=== PATIENT | female | born 1975 | race Caucasian/White ===

== ENCOUNTER 2018-03-22 20:51 | Emergency (ER) | END 2018-03-23 03:31 | disposition home or self-care (01) ==

== ENCOUNTER 2018-08-28 13:13 | Inpatient (IN) | payer OTHER ==
[~2018-08-28] VITALS: Ht 154.9 cm; Wt 68.2 kg
[2018-08-28 11:45] VITALS: Ht 154.9 cm; Wt 68.2 kg
[~2018-08-28 13:13] MED LIST: NITR-58 PO; ONDA4TAB14 PO
[2018-08-28 14:40] VITALS: BP 113/59; PULSE 59; RESP 16
--- NOTE | 2018-08-28 14:40 | NUR ---
Patient admitted from [facility], direct admit, alert and oriented. Vital signs stable. Denies pain. Patient NPO. Patient ambulatory, family at bedside. Will continue with care plan.
--- NOTE | 2018-08-28 15:51 | HP ---
Date/Time of Note Date/Time of Note DATE: 08/28/18 TIME: 15:51 Assessment/Plan VTE Prophylaxis SCD applied (from Nsg): No SCD contraindicated: other Pharmacological prophylaxis: heparin Assessment/Plan Hospital Course Assessment and plan: 43-year-old female with abdominal pain nausea vomiting with signs of cholelithiasis #Abdominal pain: Likely secondary to gallstones, specifically gallstone in the cystic duct. White blood cell count normal, LFTs normal -Admit patient, keep n.p.o. for now, give IV fluids. -Check TSH, A1c, lipid panel -We will also consult GI team and surgery team, patient may benefit from ERCP, will discuss with them. -Consider MRCP. # GI ppx-PPI HPI/ROS Admit Date/Time Admit Date/Time Aug 28, 2018 at 14:33 Hx of Present Illness 43-year-old female with no significant past medical history who was transferred from outside hospital due to insurance purposes after complaining of epigastric pain. Symptoms have been going on for the last 24 hours. She had some nausea symptoms as well as vomiting, nonbilious or nonbloody. Denied any upper or lower GI bleeding, no diarrhea constipation, no chest pain or shortness of breath, no fevers or chills. When she presented to the outside hospital imaging studies were performed and it showed an apparent cystic duct calculus. PMH/Family/Social Past Medical History Coded Allergies: Penicillins (Verified Allergy, Unknown, 03/22/18) Social History Smoking Status: Never smoker Drug Use: none Exam/Review of Systems Exam Exam General:lying in bed in no acute distress presently HEENT: pupils are equal, round and reactive. Extraocular motor are intact Neck: Supple with full range of motion. Chest: Nontender Lungs: Coarse breath sounds bilaterally, no wheezing noted no rales noted Heart: Normal S1-S2, Regular rhythm and rate. Abdomen: Soft , mild tenderness to palpation epigastric area, nondistended , bowel sounds are present. No guarding no rebound Extremities: Normal to inspection, no edema no cyanosis Neurologic: No signs of overt focal deficits KACI JAY Aug 28, 2018 15:51
[2018-08-28] MEDS ORDERED: NITROGLYCERIN (SL) 0.4 MG TAB SL PRN (16:30)
[2018-08-28] MEDS ORDERED: morphine 4 MG/ML VIAL IV PRN (16:30)
[2018-08-28] MEDS ORDERED: hydrALAzine 20 MG INJ IV PRN (16:30)
[2018-08-28] MEDS ORDERED: ALBUTEROL/IPRATROPIUM (NEB) 3 ML AMP HHN PRN (16:30)
[2018-08-28] MEDS ORDERED: ONDANSETRON 4 MG INJ IV PRN (16:30)
[2018-08-28] MEDS ORDERED: HYDROCODONE/APAP (5/325) TAB PO PRN (16:30)
[2018-08-28] MEDS ORDERED: ACETAMINOPHEN 325 MG TAB PO PRN (16:30)
[2018-08-28] MEDS ORDERED: MAGNESIUM HYDROXIDE 30ML CUP PO PRN (16:30)
[2018-08-28] MEDS ORDERED: LORAZEPAM 2 MG INJ IV PRN (16:30)
[2018-08-28] MEDS ORDERED: NACL 0.9% 3 ML SYG IV SCH (16:30)
[2018-08-28] MEDS ORDERED: DOCUSATE SODIUM 100 MG CAP PO PRN (16:30)
[2018-08-28] MEDS: SOD CHLORIDE 0.9% 1,000 ML IV SCH (17:17)
--- NOTE | 2018-08-28 19:00 | NUR ---
Patient sitting up at the edge of the bed. Patient had clear liquid diet for dinner, well tolerated. Denies pain at this time. Seen by Dr. Segovia, patient is aware that plan for tomorrow is Laparoscopic Cholecystectomy, possible open around 11 AM. Stable condition.
[2018-08-28 19:32] VITALS: BP 108/52; PULSE 61; RESP 18
[2018-08-28] MEDS: HEPARIN 5,000 UNIT/1 ML VIAL SC SCH (21:16)
[2018-08-29] VITALS (19 sets, daily range): BP systolic 98–128; BP diastolic 48–72; PULSE 56–75; RESP 12–27
[2018-08-29] MEDS: SOD CHLORIDE 0.9% 1,000 ML IV SCH ×3 (02:03→13:51)
--- NOTE | 2018-08-29 05:24 | NUR ---
Patient is alert and oriented x4, denies any pain. Able to ambulate to restroom without difficulty. at bedside. Patient is NPO except medications for procedure today. Hourly rounding provided, call light within reach. Will continue to monitor for the remaining of the shift.
[2018-08-29] MEDS: PANTOPRAZOLE (EC) 40 MG TAB PO SCH (05:44)
[2018-08-29] MEDS ORDERED: EPHEDrine SULFATE 50 MG/5 ML SYG ONE (07:00)
[2018-08-29] MEDS ORDERED: DESFLURANE 15 MIN ONE (07:00)
[2018-08-29] MEDS ORDERED: CLINDAMYCIN 900 MG/50 ML D5W IVPB IVPB ONE (07:00)
[2018-08-29] MEDS ORDERED: PHENYLephrine (100 MCG/ML) 5ML SYG ONE (07:00)
[2018-08-29] MEDS: HEPARIN 5,000 UNIT/1 ML VIAL SC SCH ×2 (08:16→21:35)
[2018-08-29] MEDS ORDERED: ONDANSETRON 4 MG INJ IV PRN (10:30)
[2018-08-29] MEDS ORDERED: morphine (1 MG/ML) 10ML SYRINGE IV PRN ×2 (10:30)
[2018-08-29] MEDS ORDERED: OXYCODONE/ACETAMINOPHEN (5/325) TAB PO PRN ×2 (10:30)
[2018-08-29] MEDS ORDERED: DIPHENHYDRAMINE 50 MG INJ IV PRN (10:30)
[2018-08-29] MEDS ORDERED: MEPERIDINE 25 MG INJ IV PRN (10:30)
[2018-08-29] MEDS ORDERED: LABETALOL HCL 20MG INJ IV PRN (10:30)
[2018-08-29] MEDS ORDERED: FENTAnyl 50 MCG/ML VIAL IV PRN ×2 (10:30)
[2018-08-29] MEDS ORDERED: HYDROmorphONE 1 MG/5 ML IV SYRINGE IV PRN ×2 (10:30)
[2018-08-29] MEDS ORDERED: ALBUTEROL 0.083% (NEB) 2.5 MG/3 ML AMP HHN PRN (10:30)
--- NOTE | 2018-08-29 10:35 | NUR ---
PATIENT WAS PICKED UP BY TRANSPORT GOING TO OR ORDERED. IV PATENT AND INTACT. REPORT GIVEN TO MADISON MIGUEL (HOLDING AREA). PER MAC, SEND THE IV HYDRATION VIA GRAVITY. PATIENT LEFT THE UNIT NO SOB OR DISTRESS, DAUGHTER ARMANDO ACCOMPANIED THE PATIENT
[2018-08-29] MEDS ORDERED: MIDAZOLAM 1 MG/ML 2 ML INJ ONE (10:52)
[2018-08-29] MEDS ORDERED: LIDOCAINE 2% (SDV) 5 ML INJ ONE (10:52)
[2018-08-29] MEDS ORDERED: ROCURONIUM 50 MG INJ ONE (10:52)
[2018-08-29] MEDS ORDERED: PROPOFOL 40 ML ONE (10:52)
[2018-08-29] MEDS ORDERED: FAMOTIDINE 20 MG INJ ONE (10:53)
[2018-08-29] MEDS ORDERED: FENTAnyl 50 MCG/ML VIAL ONE (10:53)
[2018-08-29] MEDS ORDERED: ONDANSETRON 4 MG INJ ONE (10:53)
[2018-08-29] MEDS ORDERED: DEXAMETHASONE 4 MG/ML 5 ML INJ ONE (10:53)
--- NOTE | 2018-08-29 11:09 | PREAC ---
Date/Time of Note Date/Time of Note DATE: 08/29/18 TIME: 11:08 Anesthesia Eval and Record Evaluation Time Pre-Procedure Interview DATE: 08/29/18 TIME: 11:08 Age 43 Sex female NPO: 8 hrs Preoperative diagnosis cholelithiasis Planned procedure Laparoscopic cholecystectomy Past Medical History Past Medical History: Includes GI: Obesity Surgery & Anesthesia Issues No known issue Meds Anticoagulation: No Beta Shaheen within 24 hr: No Reason Beta Shaheen not given: Pt. not on B-Shaheen Active Scripts Ondansetron (Ondansetron Odt) 4 Mg Tab.rapdis, 4 MG PO Q6H PRN for NAUSEA AND/OR VOMITING, #10 TAB Prov:EDGAR,BRIDGETT 03/23/18 Nitrofurantoin Monohyd Macrocr* (Macrobid*) 100 Mg Capsr, 100 MG PO BID for 7 Days, #14 CAP Prov:EDGAR,BRIDGETT 03/23/18 Current Medications IV Flush (NS 3 ml) 3 ml PER PROTOCOL IV ; Start 08/28/18 at 16:30 Ondansetron HCl (Zofran Inj) 4 mg Q6H PRN IV NAUSEA AND/OR VOMITING; Start 08/28/18 at 16:30 Acetaminophen (Tylenol Tab) 650 mg Q6H PRN PO PAIN LEVEL 1-3 OR FEVER; Start 08/28/18 at 16:30 Acetaminophen/ Hydrocodone Bitart ([place] (5/325)) 1 tab Q6H PRN PO MODERATE PAIN LEVEL 4-6; Start 08/28/18 at 16:30 Morphine Sulfate (morphine) 2 mg Q4H PRN IV SEVERE PAIN LEVEL 7-10; Start 08/28/18 at 16:30 Docusate Sodium (Colace) 100 mg Q12H PRN PO CONSTIPATION; Start 08/28/18 at 16:30 Magnesium Hydroxide (Milk Of Mag) 30 ml DAILY PRN PO CONSTIPATION; Start at 16:30 Pantoprazole (Protonix Tab) 40 mg DAILY@06 PO Last administered on 08/29/18at 05:44; Admin Dose 40 MG; Start 08/29/18 at 06:00 Heparin Sodium (Porcine) (Heparin (5000 Units/1ml)) 5,000 unit Q12 SC Last administered on 08/28/18at 21:16; Admin Dose 5,000 UNIT; Start 08/28/18 at 21:00 Lorazepam (Ativan) 0.5 mg Q6H PRN IV ANXIETY; Start 08/28/18 at 16:30 Sodium Chloride 1,000 ml @ 100 mls/hr Q10H IV Last administered on 08/29/18at 02:03; Admin Dose 100 MLS/HR; Start 08/28/18 at 16:05 Albuterol/ Ipratropium (Duoneb) 3 ml Q4H RESP THERAPY PRN HHN SHORTNESS OF BREATH; Start 08/28/18 at 16:30 Hydralazine HCl (Apresoline) 10 mg Q6H PRN IV ELEVATED BLOOD PRESSURE; Start 08/28/18 at 16:30 Nitroglycerin (Nitroglycerin (Sl Tab) 0.4 Mg) 1 tab Q5M PRN SL ANGINA; Start 08/28/18 at 16:30 Morphine Sulfate (morphine (REC)) 2 mg PACU ORDER PRN IV MILD PAIN LEVEL 1-3; Start 08/29/18 at 10:30; Stop 08/29/18 at 18:00 Morphine Sulfate (morphine (REC)) 4 mg PACU ORDER PRN IV MODERATE PAIN LEVEL 4- 6; Start 08/29/18 at 10:30; Stop 08/29/18 at 18:00 Hydromorphone HCl (Dilaudid) 0.2 mg PACU PRN IV MILD PAIN LEVEL 1-3; Start 08/29/18 at 10:30; Stop 08/29/18 at 18:00 Hydromorphone HCl (Dilaudid) 0.4 mg PACU PRN IV MODERATE PAIN LEVEL 4-6; Start 08/29/18 at 10:30; Stop 08/29/18 at 18:00 Fentanyl (Sublimaze) 25 mcg PACU ORDER PRN IV MILD PAIN LEVEL 1-3; Start 08/29/18 at 10:30; Stop 08/29/18 at 18:00 Fentanyl (Sublimaze) 50 mcg PACU ORDER PRN IV MODERATE PAIN LEVEL 4-6; Start 08/29/18 at 10:30; Stop 08/29/18 at 18:00 Oxycodone/ Acetaminophen (Percocet (5/ 325)) 1 tab PACU ORDER PRN PO PAIN LEVEL 1-5; Start 08/29/18 at 10:30; Stop 08/29/18 at 18:00 Oxycodone/ Acetaminophen (Percocet (5/ 325)) 2 tab PACU ORDER PRN PO PAIN LEVEL 6-10; Start 08/29/18 at 10:30; Stop 08/29/18 at 18:00 Ondansetron HCl (Zofran Inj) 4 mg PACU ORDER PRN IV NAUSEA AND/OR VOMITING; Start 08/29/18 at 10:30; Stop 08/29/18 at 18:00 Labetalol HCl (Labetalol) 5 mg PACU ORDER PRN IV ELEVATED BLOOD PRESSURE; Start 08/29/18 at 10:30; Stop 08/29/18 at 18:00 Albuterol (Proventil 0.083% (Neb)) 2.5 mg PACU ORDER PRN HHN WHEEZING; Start 08/29/18 at 10:30; Stop 08/29/18 at 18:00 Meperidine HCl (Demerol) 25 mg PACU ORDER PRN IV POST OPERATIVE SHIVERING; Start 08/29/18 at 10:30; Stop 08/29/18 at 18:00 Diphenhydramine HCl (Benadryl) 25 mg PACU ORDER PRN IV PRURITUS; Start 08/29/18 at 10:30; Stop 08/29/18 at 18:00 Meds reviewed: Yes Allergies Coded Allergies: Penicillins (Verified Allergy, Unknown, 08/28/18) Allergies Reviewed: Yes Labs/Studies Labs Reviewed: Reviewed by anesthesiologist Result Diagram: 08/29/18 0526 08/29/18 0526 Laboratory Tests 08/29/18 05:26 test: Negative Pre-procedure Exam Last vitals Vital Signs Date Temp Pulse Resp B/P (MAP) Pulse Ox O2 O2 Flow FiO2 Time Delivery Rate 08/29/18 98.1 56 18 100/48 100 08:11 (65) 08/28/18 Room Air 14:40 Airway: Adequate mouth opening, Adequate thyromental dist Mallampati: Mallampati II Teeth: Normal Lung: Normal Heart: Normal ASA Physical Status ASA physical status: 2 Emergency: E Planned Anesthetic General/MAC: ETT Pre-operative Attestations Prior to commencing anesthesia and surgery, the patient was re-evaluated, there was verification of: *The patient's identity *The results of appropriate recent lab work and preoperative vital signs *The above evaluation not changing prior to induction *Anesthetic plan, risk benefits, alternative and complications discussed with patient/family; questions answered; patient/family understands, accepts and wishes to proceed. Heating Plant Superintendent used LUIS FERNANDO DASILVA Aug 29, 2018 11:09
--- NOTE | 2018-08-29 11:10 | QN ---
Documentation Comment Pt currently in OR- will consult later today or in [facility] Aug 29, 2018 11:10
[2018-08-29] MEDS ORDERED: BUPIVACAINE 0.5%/EPI (SDV) 30 ML INJ ONE (11:25)
[2018-08-29] MEDS ORDERED: CLINDAMYCIN 600 MG/D5W (PMX) 50 ML IVPB ONE (11:27)
[2018-08-29] MEDS ORDERED: SUGAMMADEX SODIUM 200 MG/2 ML VIAL IV ONE (11:31)
--- NOTE | 2018-08-29 12:04 | NUR ---
RECEIVED ASLEEP WITH ORAL AIRWAY IN PLACE AND OXYGEN MASK ON, BREATHING WITH EASE. ABDOMINAL INCISIONS CLEAR WITH JUANA INTACT AND BAND AIDS IN PLACE.
--- NOTE | 2018-08-29 12:05 | CONS ---
Date/Time of Note Date/Time of Note DATE: 08/29/18 TIME: 12:01 Assessment/Plan Assessment/Plan Assessment/Plan Acute cholecystitis. Laparoscopic cholecystectomy is recommended. I have discussed the procedure, outcomes, alternatives and risks in detail with the patient who has an excellent understanding of the nature of her situation and agrees to the proposed plan of therapy as outlined. Result Diagram: 08/29/18 0526 08/29/18 0526 Results 24hrs Laboratory Tests Test 08/28/18 16:29 08/29/18 05:26 Prothrombin Time 12.4 Prothrombin Time Ratio 1.0 INR International Normalized Ratio 0.91 Activated Partial Thromboplast Time 28.0 Free Thyroxine 1.13 White Blood Count 4.9 Red Blood Count 3.76 L Hemoglobin 11.3 L Hematocrit 34.5 L Mean Corpuscular Volume 91.8 Mean Corpuscular Hemoglobin 30.1 Mean Corpuscular Hemoglobin Concent 32.8 Red Cell Distribution Width 13.8 Platelet Count 235 Mean Platelet Volume 10.6 H Immature Granulocytes % 0.200 Neutrophils % 40.3 Lymphocytes % 36.0 Monocytes % 6.9 Eosinophils % 16.0 H Basophils % 0.6 Nucleated Red Blood Cells % 0.0 Immature Granulocytes # 0.010 Neutrophils # 2.0 Lymphocytes # 1.8 Monocytes # 0.3 Eosinophils # 0.8 H Basophils # 0.0 Nucleated Red Blood Cells # 0.0 Sodium Level 141 Potassium Level 3.9 Chloride Level 108 Carbon Dioxide Level 27 Anion Gap 6 Blood Urea Nitrogen 14 Creatinine 0.56 Est Glomerular Filtrat Rate mL/min > 60 Glucose Level 107 Hemoglobin A1c 5.5 Calcium Level 8.2 L Phosphorus Level 3.4 Magnesium Level 2.3 Triglycerides Level 188 H Cholesterol Level 152 LDL Cholesterol, Calculated 78 HDL Cholesterol 36 Cholesterol/HDL Ratio 4.2 Thyroid Stimulating Hormone (TSH) 1.720 Consultation Date/Type/Reason Admit Date/Time Aug 28, 2018 at 14:33 Date of Consultation: Aug 28, 2018 Type of Consult General surgery Reason for Consultation Acute cholecystitis Hx of Present Illness The patient is an otherwise healthy 43-year-old female who was diagnosed with gallstones and cholecystitis at another facility. She is transferred here for insurance reasons and for continuance of care. She has had no fevers, chills or jaundice. She does have multiple gallstones. Constitutional: no complaints Eyes: no complaints ENT: no complaints Respiratory: no complaints Gastrointestinal: pain (Right upper quadrant), nausea Genitourinary: no complaints Musculoskeletal: no complaints Skin: no complaints Neurologic: no complaints Endocrine: no complaints Lymphatic: no complaints Psychological: no complaints Past Medical History Medical History: gallstones Medications Current Medications IV Flush (NS 3 ml) 3 ml PER PROTOCOL IV ; Start 08/28/18 at 16:30 Ondansetron HCl (Zofran Inj) 4 mg Q6H PRN IV NAUSEA AND/OR VOMITING; Start 08/28/18 at 16:30 Acetaminophen (Tylenol Tab) 650 mg Q6H PRN PO PAIN LEVEL 1-3 OR FEVER; Start 08/28/18 at 16:30 Acetaminophen/ Hydrocodone Bitart ([place] (5/325)) 1 tab Q6H PRN PO MODERATE PAIN LEVEL 4-6; Start 08/28/18 at 16:30 Morphine Sulfate (morphine) 2 mg Q4H PRN IV SEVERE PAIN LEVEL 7-10; Start 08/28/18 at 16:30 Docusate Sodium (Colace) 100 mg Q12H PRN PO CONSTIPATION; Start 08/28/18 at 16:30 Magnesium Hydroxide (Milk Of Mag) 30 ml DAILY PRN PO CONSTIPATION; Start 08/28/18 at 16:30 Pantoprazole (Protonix Tab) 40 mg DAILY@06 PO Last administered on 08/29/18at 05:44; Admin Dose 40 MG; Start 08/29/18 at 06:00 Heparin Sodium (Porcine) (Heparin (5000 Units/1ml)) 5,000 unit Q12 SC Last administered on 08/28/18at 21:16; Admin Dose 5,000 UNIT; Start 08/28/18 at 21:00 Lorazepam (Ativan) 0.5 mg Q6H PRN IV ANXIETY; Start 08/28/18 at 16:30 Sodium Chloride 1,000 ml @ 100 mls/hr Q10H IV Last administered on 08/29/18at 02:03; Admin Dose 100 MLS/HR; Start 08/28/18 at 16:05 Albuterol/ Ipratropium (Duoneb) 3 ml Q4H RESP THERAPY PRN HHN SHORTNESS OF BREATH; Start 08/28/18 at 16:30 Hydralazine HCl (Apresoline) 10 mg Q6H PRN IV ELEVATED BLOOD PRESSURE; Start 08/28/18 at 16:30 Nitroglycerin (Nitroglycerin (Sl Tab) 0.4 Mg) 1 tab Q5M PRN SL ANGINA; Start 08/28/18 at 16:30 Morphine Sulfate (morphine (REC)) 2 mg PACU ORDER PRN IV MILD PAIN LEVEL 1-3; Start 08/29/18 at 10:30; Stop 08/29/18 at 18:00 Morphine Sulfate (morphine (REC)) 4 mg PACU ORDER PRN IV MODERATE PAIN LEVEL 4- 6; Start 08/29/18 at 10:30; Stop 08/29/18 at 18:00 Hydromorphone HCl (Dilaudid) 0.2 mg PACU PRN IV MILD PAIN LEVEL 1-3; Start 08/29/18 at 10:30; Stop 08/29/18 at 18:00 Hydromorphone HCl (Dilaudid) 0.4 mg PACU PRN IV MODERATE PAIN LEVEL 4-6; Start 08/29/18 at 10:30; Stop 08/29/18 at 18:00 Fentanyl (Sublimaze) 25 mcg PACU ORDER PRN IV MILD PAIN LEVEL 1-3; Start 08/29/18 at 10:30; Stop 08/29/18 at 18:00 Fentanyl (Sublimaze) 50 mcg PACU ORDER PRN IV MODERATE PAIN LEVEL 4-6; Start 08/29/18 at 10:30; Stop 08/29/18 at 18:00 Oxycodone/ Acetaminophen (Percocet (5/ 325)) 1 tab PACU ORDER PRN PO PAIN LEVEL 1-5; Start 08/29/18 at 10:30; Stop 08/29/18 at 18:00 Oxycodone/ Acetaminophen (Percocet (5/ 325)) 2 tab PACU ORDER PRN PO PAIN LEVEL 6-10; Start 08/29/18 at 10:30; Stop 08/29/18 at 18:00 Ondansetron HCl (Zofran Inj) 4 mg PACU ORDER PRN IV NAUSEA AND/OR VOMITING; Start 08/29/18 at 10:30; Stop 08/29/18 at 18:00 Labetalol HCl (Labetalol) 5 mg PACU ORDER PRN IV ELEVATED BLOOD PRESSURE; Start 08/29/18 at 10:30; Stop 08/29/18 at 18:00 Albuterol (Proventil 0.083% (Neb)) 2.5 mg PACU ORDER PRN HHN WHEEZING; Start 08/29/18 at 10:30; Stop 08/29/18 at 18:00 Meperidine HCl (Demerol) 25 mg PACU ORDER PRN IV POST OPERATIVE SHIVERING; Start 08/29/18 at 10:30; Stop 08/29/18 at 18:00 Diphenhydramine HCl (Benadryl) 25 mg PACU ORDER PRN IV PRURITUS; Start 08/29/18 at 10:30; Stop 08/29/18 at 18:00 Allergies: Coded Allergies: Penicillins (Verified Allergy, Unknown, 08/28/18) Past Surgical History Past Surgical Hx: no surgical history Family History Significant Family History: no pertinent family hx Social History Alcohol Use: none (There is 2 4:39 PM in the did not consultations I did 2 consultations one was supposed to be on more see that the proper consultation 1 ended in the morning the windowsill of Demerol is the gallbladder) Smoking Status: Never smoker Drug Use: none Exam/Review of Systems Vital Signs Vitals Vital Signs Date Temp Pulse Resp B/P (MAP) Pulse Ox O2 O2 Flow FiO2 Time Delivery Rate 08/29/18 98.1 56 18 100/48 100 08:11 (65) 08/28/18 Room Air 14:40 Intake and Output 08/28/18 08/28/18 08/29/18 1515:00 23:00 07:00 IntakeIntake Total 700 ml 1300 ml BalanceBalance 700 ml 1300 ml Exam Constitutional: alert, oriented Psych: no complaints Head: normocephalic Eyes: nl conjunctiva ENMT: nl external ears & nose Neck: supple Cardiovascular: regular rate and rhythm Gastrointestinal: tender (Right upper quadrant) Musculoskeletal: nl extremities to inspection Extremities: normal pulses Neurological: OFFSET PRINTING PRESSMEN II-XII intact Skin: nl turgor Medications Medications Current Medications IV Flush (NS 3 ml) 3 ml PER PROTOCOL IV ; Start 08/28/18 at 16:30 Ondansetron HCl (Zofran Inj) 4 mg Q6H PRN IV NAUSEA AND/OR VOMITING; Start 08/28/18 at 16:30 Acetaminophen (Tylenol Tab) 650 mg Q6H PRN PO PAIN LEVEL 1-3 OR FEVER; Start 08/28/18 at 16:30 Acetaminophen/ Hydrocodone Bitart ([place] (5/325)) 1 tab Q6H PRN PO MODERATE PAIN LEVEL 4-6; Start 08/28/18 at 16:30 Morphine Sulfate (morphine) 2 mg Q4H PRN IV SEVERE PAIN LEVEL 7-10; Start 08/28/18 at 16:30 Docusate Sodium (Colace) 100 mg Q12H PRN PO CONSTIPATION; Start 08/28/18 at 16:30 Magnesium Hydroxide (Milk Of Mag) 30 ml DAILY PRN PO CONSTIPATION; Start at 16:30 Pantoprazole (Protonix Tab) 40 mg DAILY@06 PO Last administered on 08/29/18at 05:44; Admin Dose 40 MG; Start 08/29/18 at 06:00 Heparin Sodium (Porcine) (Heparin (5000 Units/1ml)) 5,000 unit Q12 SC Last administered on 08/28/18at 21:16; Admin Dose 5,000 UNIT; Start 08/28/18 at 21:00 Lorazepam (Ativan) 0.5 mg Q6H PRN IV ANXIETY; Start 08/28/18 at 16:30 Sodium Chloride 1,000 ml @ 100 mls/hr Q10H IV Last administered on 08/29/18at 02:03; Admin Dose 100 MLS/HR; Start 08/28/18 at 16:05 Albuterol/ Ipratropium (Duoneb) 3 ml Q4H RESP THERAPY PRN HHN SHORTNESS OF BREATH; Start 08/28/18 at 16:30 Hydralazine HCl (Apresoline) 10 mg Q6H PRN IV ELEVATED BLOOD PRESSURE; Start 08/28/18 at 16:30 Nitroglycerin (Nitroglycerin (Sl Tab) 0.4 Mg) 1 tab Q5M PRN SL ANGINA; Start 08/28/18 at 16:30 Morphine Sulfate (morphine (REC)) 2 mg PACU ORDER PRN IV MILD PAIN LEVEL 1-3; Start 08/29/18 at 10:30; Stop 08/29/18 at 18:00 Morphine Sulfate (morphine (REC)) 4 mg PACU ORDER PRN IV MODERATE PAIN LEVEL 4- 6; Start 08/29/18 at 10:30; Stop 08/29/18 at 18:00 Hydromorphone HCl (Dilaudid) 0.2 mg PACU PRN IV MILD PAIN LEVEL 1-3; Start 08/29/18 at 10:30; Stop 08/29/18 at 18:00 Hydromorphone HCl (Dilaudid) 0.4 mg PACU PRN IV MODERATE PAIN LEVEL 4-6; Start 08/29/18 at 10:30; Stop 08/29/18 at 18:00 Fentanyl (Sublimaze) 25 mcg PACU ORDER PRN IV MILD PAIN LEVEL 1-3; Start 08/29/18 at 10:30; Stop 08/29/18 at 18:00 Fentanyl (Sublimaze) 50 mcg PACU ORDER PRN IV MODERATE PAIN LEVEL 4-6; Start 08/29/18 at 10:30; Stop 08/29/18 at 18:00 Oxycodone/ Acetaminophen (Percocet (5/ 325)) 1 tab PACU ORDER PRN PO PAIN LEVEL 1-5; Start 08/29/18 at 10:30; Stop 08/29/18 at 18:00 Oxycodone/ Acetaminophen (Percocet (5/ 325)) 2 tab PACU ORDER PRN PO PAIN LEVEL 6-10; Start 08/29/18 at 10:30; Stop 08/29/18 at 18:00 Ondansetron HCl (Zofran Inj) 4 mg PACU ORDER PRN IV NAUSEA AND/OR VOMITING; Start 08/29/18 at 10:30; Stop 08/29/18 at 18:00 Labetalol HCl (Labetalol) 5 mg PACU ORDER PRN IV ELEVATED BLOOD PRESSURE; Start 08/29/18 at 10:30; Stop 08/29/18 at 18:00 Albuterol (Proventil 0.083% (Neb)) 2.5 mg PACU ORDER PRN HHN WHEEZING; Start 08/29/18 at 10:30; Stop 08/29/18 at 18:00 Meperidine HCl (Demerol) 25 mg PACU ORDER PRN IV POST OPERATIVE SHIVERING; Start 08/29/18 at 10:30; Stop 08/29/18 at 18:00 Diphenhydramine HCl (Benadryl) 25 mg PACU ORDER PRN IV PRURITUS; Start 08/29/18 at 10:30; Stop 08/29/18 at 18:00 FLORENTINO DENNISON MD Aug 29, 2018 12:05
--- NOTE | 2018-08-29 12:08 | OPR ---
Date/Time of Note Date/Time of Note DATE: 08/29/18 TIME: 12:05 Operative Report Procedure Date: Aug 29, 2018 Preoperative Diagnosis Acute cholecystitis Postoperative Diagnosis Acute cholecystitis Operation/Procedure Performed Laparoscopic cholecystectomy Surgeon Florentino Segovia MD Residence Counselor None Anesthesia Type: general Anesthesiologist: LUIS FERNANDO DASILVA Estimated Blood Loss: minimal Transfusion none Specimen Gallbladder Grafts/Implants none Tubes/Drains None Complications none Pt Condition Post Procedure: stable Disposition: PACU Indications Acute cholecystitis Procedure Description After satisfactory general endotracheal anesthesia was achieved, the abdomen was prepped and draped in the usual fashion. The abdomen was insufflated with carbon dioxide through an umbilical Veress needle to 15 mmHg pressure. The Veress needle was removed and the umbilical incision extended to 5 mm which a 5 mm trocar was placed. A 5 mm 0 degree lens was placed. Laparoscopy showed an inflamed edematous gallbladder. Under direct visualization an 11 mm epigastric trocar was placed as well as 2 more 5 mm right lateral abdominal trochars. The dome of the gallbladder was grasped and retracted superiorly. The distal gallbladder was grasped and retracted inferolaterally. The hepatoduodenal ligament was dissected carefully between the gallbladder and the well-visualized peace hepatis. The cystic duct was dissected circumferentially then triply hemoclipped and divided high at the junction of the gallbladder and the cystic duct. The cystic artery was identified immediately posteriorly. This was triply hemoclipped and divided between clips. The gallbladder was then dissected from below using electrocautery dissection and placed fully intact into an Endo Catch removed via the epigastric route. Hemostasis of the liver bed was total and irrigant returned clear. The abdomen was then desufflated and the trochars were removed. The fascia of the epigastrium was closed with a single suture of 0 Vicryl. The skin punctures were then infiltrated with 30 cc of 0.5% Marcaine with epinephrine and closed with kumar. Sponge and needle counts were reported as correct x2. FLORENTINO SEGOVIA MD Aug 29, 2018 12:08
--- NOTE | 2018-08-29 12:09 | PAC ---
Date/Time of Note Date/Time of Note DATE: 08/29/18 TIME: 12:08 Post-Anesthesia Notes Post-Anesthesia Note Last documented vital signs Vital Signs Date Temp Pulse Resp B/P (MAP) Pulse Ox O2 O2 Flow FiO2 Time Delivery Rate 08/29/18 98.1 56 18 100/48 100 08:11 (65) 08/28/18 Room Air 14:40 Activity: WNL Respiratory function: WNL Cardiovascular function: WNL Mental status: Baseline Pain reasonably controlled: Yes Hydration appropriate: Yes Nausea/Vomiting absent: Yes LUIS FERNANDO DASILVA Aug 29, 2018 12:09
--- NOTE | 2018-08-29 12:13 | NUR ---
WAKING UP ORAL AIRWAY OUT. BREATHING WELL. NO S/S BLEEDING
--- NOTE | 2018-08-29 13:20 | NUR ---
AWAKE AND ALERT. DENIES PAIN.NO S/S BLEEDING. REPORT TO ANTHONY MIGUEL, TRANSFERRED TO FLOOR IN STABLE CONDITION.
--- NOTE | 2018-08-29 13:24 | PN ---
Date/Time of Note Date/Time of Note DATE: 08/29/18 TIME: 13:21 Assessment/Plan VTE Prophylaxis Risk score (from Nsg)>0 risk: 2 SCD applied (from Nsg): Yes Pharmacological prophylaxis: other Lines/Catheters IV Catheter Type (from Nrsg): Peripheral IV Urinary Cath still in place: No Assessment/Plan Hospital Course S: Patient awaiting surgical procedure for later today. No acute events overnight. O: VS - see below PE: -Unable to be performed today because the patient is off the floor at surgery presently Assessment and plan: 43-year-old female with abdominal pain nausea vomiting with signs of cholelithiasis #Abdominal pain: Likely secondary to gallstones, specifically gallstone in the cystic duct. White blood cell count normal, LFTs normal -Continue n.p.o. for now, IV fluids, as needed pain control medications -For surgery today, follow postop recommendations -Follow-up recognitions from GI team and surgery teams # GI ppx-PPI Result Diagram: 08/29/18 0526 08/29/18 0526 Results 24hrs Laboratory Tests Test 08/28/18 16:29 08/29/18 05:26 Prothrombin Time 12.4 Prothrombin Time Ratio 1.0 INR International Normalized Ratio 0.91 Activated Partial Thromboplast Time 28.0 Free Thyroxine 1.13 White Blood Count 4.9 Red Blood Count 3.76 L Hemoglobin 11.3 L Hematocrit 34.5 L Mean Corpuscular Volume 91.8 Mean Corpuscular Hemoglobin 30.1 Mean Corpuscular Hemoglobin Concent 32.8 Red Cell Distribution Width 13.8 Platelet Count 235 Mean Platelet Volume 10.6 H Immature Granulocytes % 0.200 Neutrophils % 40.3 Lymphocytes % 36.0 Monocytes % 6.9 Eosinophils % 16.0 H Basophils % 0.6 Nucleated Red Blood Cells % 0.0 Immature Granulocytes # 0.010 Neutrophils # 2.0 Lymphocytes # 1.8 Monocytes # 0.3 Eosinophils # 0.8 H Basophils # 0.0 Nucleated Red Blood Cells # 0.0 Sodium Level 141 Potassium Level 3.9 Chloride Level 108 Carbon Dioxide Level 27 Anion Gap 6 Blood Urea Nitrogen 14 Creatinine 0.56 Est Glomerular Filtrat Rate mL/min > 60 Glucose Level 107 Hemoglobin A1c 5.5 Calcium Level 8.2 L Phosphorus Level 3.4 Magnesium Level 2.3 Triglycerides Level 188 H Cholesterol Level 152 LDL Cholesterol, Calculated 78 HDL Cholesterol 36 Cholesterol/HDL Ratio 4.2 Thyroid Stimulating Hormone (TSH) 1.720 Exam/Review of Systems Vital Signs Vitals Vital Signs Date Temp Pulse Resp B/P (MAP) Pulse Ox O2 O2 Flow FiO2 Time Delivery Rate 08/29/18 62 27 110/61 98 Room Air 12:45 (77) 08/29/18 2.0 12:35 08/29/18 98.1 12:09 Intake and Output 08/28/18 08/28/18 08/29/18 1515:00 23:00 07:00 IntakeIntake Total 700 ml 1300 ml BalanceBalance 700 ml 1300 ml Medications Medications Current Medications IV Flush (NS 3 ml) 3 ml PER PROTOCOL IV ; Start 08/28/18 at 16:30 Ondansetron HCl (Zofran Inj) 4 mg Q6H PRN IV NAUSEA AND/OR VOMITING; Start 08/28/18 at 16:30 Acetaminophen (Tylenol Tab) 650 mg Q6H PRN PO PAIN LEVEL 1-3 OR FEVER; Start 08/28/18 at 16:30 Acetaminophen/ Hydrocodone Bitart ([place] (5/325)) 1 tab Q6H PRN PO MODERATE PAIN LEVEL 4-6; Start 08/28/18 at 16:30 Morphine Sulfate (morphine) 2 mg Q4H PRN IV SEVERE PAIN LEVEL 7-10; Start 08/28/18 at 16:30 Docusate Sodium (Colace) 100 mg Q12H PRN PO CONSTIPATION; Start 08/28/18 at 16:30 Magnesium Hydroxide (Milk Of Mag) 30 ml DAILY PRN PO CONSTIPATION; Start 08/28/18 at 16:30 Pantoprazole (Protonix Tab) 40 mg DAILY@06 PO Last administered on 08/29/18at 05:44; Admin Dose 40 MG; Start 08/29/18 at 06:00 Heparin Sodium (Porcine) (Heparin (5000 Units/1ml)) 5,000 unit Q12 SC Last administered on 08/28/18at 21:16; Admin Dose 5,000 UNIT; Start 08/28/18 at 21:00 Lorazepam (Ativan) 0.5 mg Q6H PRN IV ANXIETY; Start 08/28/18 at 16:30 Sodium Chloride 1,000 ml @ 100 mls/hr Q10H IV Last administered on 08/29/18at 02:03; Admin Dose 100 MLS/HR; Start 08/28/18 at 16:05 Albuterol/ Ipratropium (Duoneb) 3 ml Q4H RESP THERAPY PRN HHN SHORTNESS OF BREATH; Start 08/28/18 at 16:30 Hydralazine HCl (Apresoline) 10 mg Q6H PRN IV ELEVATED BLOOD PRESSURE; Start 08/28/18 at 16:30 Nitroglycerin (Nitroglycerin (Sl Tab) 0.4 Mg) 1 tab Q5M PRN SL ANGINA; Start 08/28/18 at 16:30 Morphine Sulfate (morphine (REC)) 2 mg PACU ORDER PRN IV MILD PAIN LEVEL 1-3; Start 08/29/18 at 10:30; Stop 08/29/18 at 18:00 Morphine Sulfate (morphine (REC)) 4 mg PACU ORDER PRN IV MODERATE PAIN LEVEL 4- 6; Start 08/29/18 at 10:30; Stop 08/29/18 at 18:00 Hydromorphone HCl (Dilaudid) 0.2 mg PACU PRN IV MILD PAIN LEVEL 1-3; Start 08/29/18 at 10:30; Stop 08/29/18 at 18:00 Hydromorphone HCl (Dilaudid) 0.4 mg PACU PRN IV MODERATE PAIN LEVEL 4-6; Start 08/29/18 at 10:30; Stop 08/29/18 at 18:00 Fentanyl (Sublimaze) 25 mcg PACU ORDER PRN IV MILD PAIN LEVEL 1-3; Start 08/29/18 at 10:30; Stop 08/29/18 at 18:00 Fentanyl (Sublimaze) 50 mcg PACU ORDER PRN IV MODERATE PAIN LEVEL 4-6; Start 08/29/18 at 10:30; Stop 08/29/18 at 18:00 Oxycodone/ Acetaminophen (Percocet (5/ 325)) 1 tab PACU ORDER PRN PO PAIN LEVEL 1-5; Start 08/29/18 at 10:30; Stop 08/29/18 at 18:00 Oxycodone/ Acetaminophen (Percocet (5/ 325)) 2 tab PACU ORDER PRN PO PAIN LEVEL 6-10; Start 08/29/18 at 10:30; Stop 08/29/18 at 18:00 Ondansetron HCl (Zofran Inj) 4 mg PACU ORDER PRN IV NAUSEA AND/OR VOMITING; Start 08/29/18 at 10:30; Stop 08/29/18 at 18:00 Labetalol HCl (Labetalol) 5 mg PACU ORDER PRN IV ELEVATED BLOOD PRESSURE; Start 08/29/18 at 10:30; Stop 08/29/18 at 18:00 Albuterol (Proventil 0.083% (Neb)) 2.5 mg PACU ORDER PRN HHN WHEEZING; Start 08/29/18 at 10:30; Stop 08/29/18 at 18:00 Meperidine HCl (Demerol) 25 mg PACU ORDER PRN IV POST OPERATIVE SHIVERING Last administered on 08/29/18at 12:19; Admin Dose 25 MG; Start 08/29/18 at 10:30; Stop 08/29/18 at 18:00 Diphenhydramine HCl (Benadryl) 25 mg PACU ORDER PRN IV PRURITUS; Start 08/29/18 at 10:30; Stop 08/29/18 at 18:00 KACI JAY Aug 29, 2018 13:24
--- NOTE | 2018-08-29 13:35 | NUR ---
Patient came back from PACU, no SOB or distress
--- NOTE | 2018-08-29 17:46 | NUR ---
Nurse Notes: patient alert and oriented x 4, able to make needs known remained stable throughout the shift with no acute changes noted. No SOB or distress. assessed and reassessed for pain. Lap sites noted intact, no bleeding noted. IV patent and intact. no nausea/ vomiting noted. Afebrile, vitals signs WNL. Safety precautions observed, hourly rounding done, bed alarm and bed brakes on for safety. Call light and telephone within reach at all times. Will continue to monitor. Will endorse accordingly to next shift for continuity of care.
[2018-08-29] MEDS: HYDROCODONE/APAP (5/325) TAB PO PRN (18:19)
[2018-08-30] MEDS: SOD CHLORIDE 0.9% 1,000 ML IV SCH (00:01)
[2018-08-30 02:08] VITALS: BP 113/55; PULSE 68; RESP 20
[2018-08-30] MEDS: PANTOPRAZOLE (EC) 40 MG TAB PO SCH (05:17)
[2018-08-30] MEDS: HYDROCODONE/APAP (5/325) TAB PO PRN (05:17)
--- NOTE | 2018-08-30 05:49 | NUR ---
Pt alert and oriented x4. Pain assessed through the night, pt asked for pain medication x1 with adequate relief of pain. Lap sites remain dry and intact. Incentive provided, education given, and encouraged to use. Pt also encouraged to walk but stated they would like to walk during the AM. Fall precautions in place, instructed pt to call for help when getting out of bed. No signs of acute distress noted. Vital signs stable. Hourly rounding provided. Will continue to monitor and endorse accordingly to next shift.
[2018-08-30 08:07] VITALS: BP 99/55; PULSE 72; RESP 18
--- NOTE | 2018-08-30 08:46 | QN ---
Documentation Comment Postoperative day #1 Markedly symptomatically improved Abdominal examination is benign Plan: Patient is cleared for discharge. She will need po pain medications and antibiotics Office follow-up 1 week for staple removal FLORENTINO DENNISON MD Aug 30, 2018 08:46
[2018-08-30] MEDS: HEPARIN 5,000 UNIT/1 ML VIAL SC SCH (09:11)
--- NOTE | 2018-08-30 09:19 | PDOCDIS ---
Discharge Instructions CONDITION [id number] Patient Condition: [id number] Stable HOME CARE INSTRUCTIONS: [id number] Special Diet: [id number] Regular ACTIVITY: [id number] Activity Restrictions: [id number] Slowly Increase Activity Rest between Activity Avoid heavy lifting FOLLOW UP/APPOINTMENTS Follow-up Plan Please take your medications as prescribed. Please see your doctor in the clinic in the next 1-2 weeks. KACI JAY Aug 30, 2018 09:19
[2018-08-30] MEDS ORDERED: HYDR-3601 PO (09:21)
--- NOTE | 2018-08-30 09:23 | DS ---
Date/Time of Note Date/Time of Note DATE: 08/30/18 TIME: 09:22 Discharge Summary Admission/Discharge Info Admit Date/Time Aug 28, 2018 at 14:33 Discharge Date/Time Patient Condition: Stable Procedures Date/Time of Note Date/Time of Note DATE: 08/29/18 TIME: 12:05 Operative Report Procedure Date: Aug 29, 2018 Preoperative Diagnosis Acute cholecystitis Postoperative Diagnosis Acute cholecystitis Operation/Procedure Performed Laparoscopic cholecystectomy Hx of Present Illness 43-year-old female with no significant past medical history who was transferred from outside hospital due to insurance purposes after complaining of epigastric pain. Symptoms have been going on for the last 24 hours. She had some nausea symptoms as well as vomiting, nonbilious or nonbloody. Denied any upper or lower GI bleeding, no diarrhea constipation, no chest pain or shortness of breath, no fevers or chills. When she presented to the outside hospital imaging studies were performed and it showed an apparent cystic duct calculus. Hospital Course So patient was admitted, was seen by surgery team during this hospital stay. She was given IV fluids and pain control medications and antiemetics. She underwent a laparoscopic cholecystectomy by the surgery team. Patient tolerated the procedure well. Afterwards she was given pain control medications, her labs were monitored very carefully. Her white blood cell count was normal, she had no fevers. She was able to ambulate, tolerated p.o. diet. After getting clearance from the workday consultant teams she will be discharged home today in improved condition. See below for full list of discharge medications. Home Meds Active Scripts Hydrocodone Bit-Acetaminophen (Hydrocodone Bit-APAP) 5-325MG Tablet, 1 TAB PO Q4H PRN for MODERATE PAIN LEVEL 4-6, #20 TAB Prov:KACI JAY S. 08/30/18 Ondansetron (Ondansetron Odt) 4 Mg Tab.rapdis, 4 MG PO Q6H PRN for NAUSEA AND/OR VOMITING, #10 TAB Prov:EDGAR,BRIDGETT 03/23/18 Nitrofurantoin Monohyd Macrocr* (Macrobid*) 100 Mg Capsr, 100 MG PO BID for 7 Days, #14 CAP Prov:EDGAR,BRIDGETT 03/23/18 Follow-up Plan Please take your medications as prescribed. Please see your doctor in the clinic in the next 1-2 weeks. Primary Care Provider Not On Staff Doctor Time spent on discharge: > 30 minutes Pending Labs Laboratory Tests Test 08/30/18 08:21 White Blood Count 8.7 10^3/ul (4.8-10.8) Red Blood Count 3.78 10^6/ul (4.20-5.40) Hemoglobin 11.3 g/dl (12.0-16.0) Hematocrit 34.9 % (37.0-47.0) Mean Corpuscular Volume 92.3 fl (82.0-101.0) Mean Corpuscular Hemoglobin 29.9 pg (29.0-33.0) Mean Corpuscular Hemoglobin Concent 32.4 g/dl (32.0-37.0) Red Cell Distribution Width 14.0 % (11.5-14.5) Platelet Count 241 10^3/UL (140-415) Mean Platelet Volume 10.7 fl (7.4-10.4) Immature Granulocytes % 0.300 % (0.001-0.429) Neutrophils % 69.9 % (39.0-77.0) Lymphocytes % 22.5 % (15.0-51.0) Monocytes % 5.8 % (0.0-11.0) Eosinophils % 0.9 % (0.0-7.0) Basophils % 0.6 % (0.0-2.0) Nucleated Red Blood Cells % 0.0 /100WBC (0.0-0.0) Immature Granulocytes # 0.030 10^3/ul (0.0-0.031) Neutrophils # 6.1 10^3/ul (1.6-7.5) Lymphocytes # 2.0 10^3/ul (0.8-2.9) Monocytes # 0.5 10^3/ul (0.3-0.9) Eosinophils # 0.1 10^3/ul (0.0-0.5) Basophils # 0.1 10^3/ul (0.0-0.1) Nucleated Red Blood Cells # 0.0 10^3/ul (0.0-0.0) KACI JAY Aug 30, 2018 09:23
--- NOTE | 2018-08-30 11:58 | NUR ---
Patient alert and oriented x4. patient denies pain, no sob noted. patient's IV d/c and dressing applied, no bleeding noted. patient's daughter and son at bedside. discharge information and educational materials given, incentive spirometer given to pt, prescription with pt. Pt discharged safe with wheelchair by volunteer.
== END 2018-08-30 12:00 | disposition home or self-care (01) | DRG 419 ==
LOC: PP2 14:33
PROVIDERS: ADMIT Hospitalist; ATTEND Hospitalist
PROC: 0FT44ZZ Resection of Gallbladder, Percutaneous Endoscopic Approach (ICD-10-PCS; principal; 2018-08-28)
DX: K81.0 Acute cholecystitis (principal)
CPT/HCPCS: 80048; 80061; 83036; 83735; 84100; 84439; 84443; 85025; 85610; 85730; 88304; J1100; J1644; J2175; J2250; J2370; J2405; J3010; J7030

== ENCOUNTER 2018-09-01 20:37 | Inpatient (IN) | payer OTHER ==
[~2018-09-01] VITALS: Ht 154.9 cm; Wt 69.0 kg
[~2018-09-01 20:37] MED LIST changes: +HYDR-3601 PO
[2018-09-01] MEDS ORDERED: morphine 4 MG/ML VIAL IV STA (22:19)
[2018-09-01] MEDS ORDERED: ONDANSETRON 4 MG INJ IV STA ×2 (22:19→23:55)
[2018-09-01] MEDS ORDERED: SOD CHLORIDE 0.9% 1,000 ML IV STA (22:19)
[2018-09-01] MEDS ORDERED: IOHEXOL 300MG/ML 150 ML BTL ONE (23:35)
[2018-09-01] MEDS ORDERED: SOD CHLORIDE 0.9% 100 ML ONE (23:35)
[2018-09-01] MEDS ORDERED: HYDROmorphONE 2 MG/ML SYG IV STA (23:55)
[2018-09-02] MEDS ORDERED: ONDA4TAB14 PO (00:38)
[2018-09-02] MEDS ORDERED: DOCU-144 PO (00:38)
[2018-09-02] MEDS ORDERED: SENN-120 PO (00:38)
[2018-09-02] MEDS ORDERED: LORAZEPAM 2 MG INJ IV ONE (01:30)
[2018-09-02] MEDS ORDERED: ACETAMINOPHEN 325 MG TAB PO PRN (02:30)
[2018-09-02] MEDS ORDERED: ONDANSETRON 4 MG INJ IV PRN (02:30)
--- NOTE | 2018-09-02 02:55 | ERD ---
ER Documentation Chief Complaint Chief Complaint post op pain today, gallbladder removed 5 days ago HPI Patient is a 43-year-old female with no medical problems who presents with abdominal pain and nausea. She also has diarrhea. The symptoms started this afternoon. The pain was sharp in nature. She had a cholecystectomy done by Dr. Segovia 5 days ago. She denies fevers. Upon review of old medical records this is the patient's third visit to the ER since February 2018. ROS All systems reviewed and are negative except as per history of present illness. Medications Home Meds Active Scripts Sennosides* (Senna Lax*) 8.6 Mg Tablet, 1 TAB PO DAILY, #30 TAB Prov:DARRIN ACOSTA MD 09/02/18 Docusate Sodium* (Colace*) 100 Mg Capsule, 100 MG PO TID, #30 CAP Prov:DARRIN ACOSTA MD 09/02/18 Ondansetron (Ondansetron Odt) 4 Mg Tab.rapdis, 4 MG PO Q6H PRN for NAUSEA AND/OR VOMITING, #10 TAB Prov:DARRIN ACOSTA MD 09/02/18 Discontinued Scripts Hydrocodone Bit-Acetaminophen (Hydrocodone Bit-APAP) 5-325MG Tablet, 1 TAB PO Q4H PRN for MODERATE PAIN LEVEL 4-6, #20 TAB Prov:KACI JAY 08/30/18 Ondansetron (Ondansetron Odt) 4 Mg Tab.rapdis, 4 MG PO Q6H PRN for NAUSEA AND/OR VOMITING, #10 TAB Prov:EDGAR,BRIDGETT 03/23/18 Nitrofurantoin Monohyd Macrocr* (Macrobid*) 100 Mg Capsr, 100 MG PO BID for 7 Days, #14 CAP Prov:EDGAR,BRIDGETT 03/23/18 Allergies Allergies: Coded Allergies: Penicillins (Verified Allergy, Unknown, 09/01/18) PMhx/Soc History of Surgery: Yes () Anesthesia Reaction: No Hx Neurological Disorder: No Hx Respiratory Disorders: No Hx Cardiac Disorders: No Hx Psychiatric Problems: No Hx Miscellaneous Medical Probl: No Hx Alcohol Use: No Hx Substance Use: No Hx Tobacco Use: No Smoking Status: Never smoker FmHx Family History: No diabetes Physical Exam Vitals Vital Signs Date Temp Pulse Resp B/P (MAP) Pulse Ox O2 O2 Flow FiO2 Time Delivery Rate 09/01/18 98.5 90 22 124/61 96 22:30 (82) 09/01/18 99.4 95 22 124/61 96 20:48 (82) Physical Exam Const: Moderate distress Head: Atraumatic Eyes: Normal Conjunctiva ENT: Normal External Ears, Nose and Mouth. Neck: Full range of motion. No meningismus. Resp: Clear to auscultation bilaterally Cardio: Regular rate and rhythm, no murmurs Abd: Soft, diffuse tenderness to palpation without rebound or guarding Skin: No petechiae or rashes Back: No midline or flank tenderness Ext: No cyanosis, or edema Neur: Awake and alert Psych: Normal Mood and Affect Result Diagram: 09/01/18223909/01/182239 Results 24 hrs Laboratory Tests Test 09/01/18 22:40 White Blood Count 10.9 10^3/ul Red Blood Count 4.72 10^6/ul Hemoglobin 14.0 g/dl Hematocrit 42.2 % Mean Corpuscular Volume 89.4 fl Mean Corpuscular Hemoglobin 29.7 pg Mean Corpuscular Hemoglobin Concent 33.2 g/dl Red Cell Distribution Width 13.5 % Platelet Count 271 10^3/UL Mean Platelet Volume 10.1 fl Immature Granulocytes % 0.400 % Neutrophils % 83.8 % Lymphocytes % 9.6 % Monocytes % 3.9 % Eosinophils % 1.8 % Basophils % 0.5 % Nucleated Red Blood Cells % 0.0 /100WBC Immature Granulocytes # 0.040 10^3/ul Neutrophils # 9.2 10^3/ul Lymphocytes # 1.1 10^3/ul Monocytes # 0.4 10^3/ul Eosinophils # 0.2 10^3/ul Basophils # 0.1 10^3/ul Nucleated Red Blood Cells # 0.0 10^3/ul Sodium Level 141 mmol/L Potassium Level 4.0 mmol/L Chloride Level 104 mmol/L Carbon Dioxide Level 21 mmol/L Anion Gap 16 Blood Urea Nitrogen 11 mg/dl Creatinine 0.55 mg/dl Est Glomerular Filtrat Rate mL/min > 60 mL/min Glucose Level 168 mg/dl Calcium Level 9.3 mg/dl Total Bilirubin 0.3 mg/dl Direct Bilirubin 0.00 mg/dl Indirect Bilirubin 0.3 mg/dl Aspartate Amino Transf (AST/SGOT) 240 IU/L Alanine Aminotransferase (ALT/SGPT) 248 IU/L Alkaline Phosphatase 104 IU/L Total Protein 8.1 g/dl Albumin 4.5 g/dl Globulin 3.60 g/dl Albumin/Globulin Ratio 1.25 Lipase 35 U/L Current Medications Medications Dose Sig/Norman Start Time Status Last (Trade) Ordered Route PRN Stop Time Admin Dose Reason Admin Sodium 1,000 ml @ Q1H STAT 09/01/18 DC 09/01/18 Chloride 1,000 mls/hr IV 22:19 09/01/18 22:38 23:18 Morphine 4 mg ONCE STAT 09/01/18 DC 09/01/18 Sulfate IV 22:19 09/01/18 22:37 (morphine) 22:20 Ondansetron 4 mg ONCE STAT 09/01/18 DC 09/01/18 HCl (Zofran IV 22:19 09/01/18 22:37 Inj) 22:20 IV Flush 10 ml STK-MED 09/01/18 DC 09/01/18 (NS 10 ml) ONCE .ROUTE 23:35 09/01/18 23:48 23:36 Sodium 100 ml @ ud STK-MED 09/01/18 DC 09/01/18 Chloride ONCE .ROUTE 23:35 09/01/18 23:48 23:36 Iohexol 150 ml STK-MED 09/01/18 DC 09/01/18 (Omnipaque ONCE .ROUTE 23:35 09/01/18 23:48 300mg/ ml) 23:36 1 mg ONCE STAT 09/01/18 DC 09/02/18 Hydromorphone IV 23:55 09/01/18 00:13 HCl 23:56 (Dilaudid) Ondansetron 4 mg ONCE STAT 09/01/18 DC 09/02/18 HCl (Zofran IV 23:55 09/01/18 00:12 Inj) 23:56 Lorazepam 0.5 mg ONCE ONCE 09/02/18 DC 09/02/18 (Ativan) IV 01:30 09/02/18 01:52 01:31 Procedures/MDM CT abdomen and pelvis shows no sign of surgical abscess or bleeding at this time per radiology. Patient is a 43-year-old female who presents with abdominal pain and vomiting 5 days after gallbladder removal by Dr. Segovia. The patient had basically normal laboratory studies and a CT scan which showed no signs of postoperative abscess or postoperative bleeding. The patient was given morphine and Dilaudid as well as Zofran twice but is still having pain and nausea and vomiting. At this point I believe she has intractable pain and will need admission to a medical surgical observation bed for pain and nausea control. I spoke with Dr. Huynh for admission to a medical surgical bed. Dr. Segovia can be consulted in the morning if needed. Departure Diagnosis: Primary Impression: Post-op pain Condition: Fair Patient Instructions: Post Op Wound Check, Pain Referrals: Your surgeon Additional Instructions: Specialist:Usted tiene dana condicin mdica que requiere que tamara a un especialista dentro de los prximos 1-2 wolfe.POR FAVOR,CON CHEEMA SEGUIMIENTO DE PRIMARIA PHSICIAN refferal. SI USTED NO TIENE UN MDICO GENERAL Y / O USTED NO PUEDE PAGAR moriah a un mdico,los siguientes ivory RECURSOS sido suministrado a usted. ES CHEEMA RESPONSABILIDAD PARA SER VISTOS POR EL ESPECIALISTA: DARRIN ACOSTA MD Sep 02, 2018 02:55
[2018-09-02 03:13] VITALS: BP 125/79; PULSE 94; RESP 18
[2018-09-02 03:14] VITALS: Ht 154.9 cm; Wt 69.0 kg
[2018-09-02] MEDS ORDERED: morphine 4 MG/ML VIAL IV PRN (04:30)
[2018-09-02] MEDS ORDERED: NACL 0.9% 3 ML SYG IV SCH (04:30)
[2018-09-02] MEDS: DEXTROSE 5%-0.45% NACL 1,000 ML IV SCH ×3 (05:12→17:38)
[2018-09-02] MEDS: ONDANSETRON 4 MG INJ IV PRN ×2 (05:13→12:42)
--- NOTE | 2018-09-02 07:02 | HP ---
Date/Time of Note Date/Time of Note DATE: 09/02/18 TIME: 06:59 Assessment/Plan VTE Prophylaxis Risk score (from Nsg)>0 risk: 2 Pharmacological prophylaxis: heparin Lines/Catheters IV Catheter Type (from Nrsg): Saline Lock Assessment/Plan Assessment/Plan 43-year-old female status post laparoscopic cholecystectomy on 08/29/17 presents with abdominal pain and constipation, most likely secondary to postop ileus PLAN Keep n.p.o. with IV fluid Pain management Awaiting surgical eval of CT findings Result Diagram: 09/02/1828 09/02/1828 Results 24hrs Laboratory Tests Test 09/01/18 22:40 09/02/18 05:28 White Blood Count 10.9 #H 10.8 Red Blood Count 4.72 # 4.25 Hemoglobin 14.0 # 12.6 Hematocrit 42.2 # 38.2 Mean Corpuscular Volume 89.4 89.9 Mean Corpuscular Hemoglobin 29.7 29.6 Mean Corpuscular Hemoglobin Concent 33.2 33.0 Red Cell Distribution Width 13.5 14.1 Platelet Count 271 242 Mean Platelet Volume 10.1 10.4 Immature Granulocytes % 0.400 0.500 H Neutrophils % 83.8 H 85.7 H Lymphocytes % 9.6 L 8.3 L Monocytes % 3.9 5.0 Eosinophils % 1.8 0.2 Basophils % 0.5 0.3 Nucleated Red Blood Cells % 0.0 0.0 Immature Granulocytes # 0.040 H 0.050 H Neutrophils # 9.2 H 9.3 H Lymphocytes # 1.1 0.9 Monocytes # 0.4 0.5 Eosinophils # 0.2 0.0 Basophils # 0.1 0.0 Nucleated Red Blood Cells # 0.0 0.0 Sodium Level 141 138 Potassium Level 4.0 3.7 Chloride Level 104 107 Carbon Dioxide Level 21 21 Anion Gap 16 H 10 # Blood Urea Nitrogen 11 10 Creatinine 0.55 0.41 L Est Glomerular Filtrat Rate mL/min > 60 > 60 Glucose Level 168 151 Calcium Level 9.3 8.8 Total Bilirubin 0.3 0.3 Direct Bilirubin 0.00 0.00 Indirect Bilirubin 0.3 0.3 Aspartate Amino Transf (AST/SGOT) 240 H 158 H Alanine Aminotransferase (ALT/SGPT) 248 H 221 H Alkaline Phosphatase 104 109 Total Protein 8.1 7.5 Albumin 4.5 4.2 Globulin 3.60 H 3.30 H Albumin/Globulin Ratio 1.25 1.27 Lipase 35 HPI/ROS Admit Date/Time Admit Date/Time Sep 02, 2018 at 02:04 Hx of Present Illness This is a 43-year-old female who had laparoscopic cholecystectomy on 08/29/[address] Segovia who presented to ER complaining of abdominal pain. Pain has been diffuse for the most part. She also reported constipation. Daughter and were also at the bedside with daughter providing additional information. Patient complains of constipation which the daughter state was since August 27, which is 2 days prior to the surgery. She did have few episodes of vomiting. Patient and daughter reported that the patient has been passing gas including today. CT abdomen/pelvis in the ER shows the following 1. The scattered areas of pneumoperitoneum are believed to be related to recent surgery, presumably cholecystectomy, with multiple foci of gas in the subcutaneous fat and right rectus muscle. Perforation of a hollow viscus is believed to be less likely. Results are discussed by telephone with Dr. Marina at 12:28 a.m. 2. Ileus pattern of the distal small bowel and colon with some fecal debris seen in the distal small bowel and copious gas throughout the colonic lumen but no evidence of complete bowel obstruction or intraperitoneal abscess. 3. Bilateral posterior lower lobe subsegmental atelectasis. 4. Heterogeneous attenuation of the myometrium possibly reflecting small leiomyomata with the endometrium thickness believed to be within normal limits for the patient's age. 5. Incidental left ovarian follicle that does not require imaging follow-up. PMH/Family/Social Past Medical History PMH/Family/Social Past Medical History Medical History: other (see hpi) Coded Allergies: No Known Drug Allergy (Verified Allergy, Unknown, 04/14/16) Past Surgical History Past Surgical Hx: other (see hpi) Family History Significant Family History: no pertinent family hx Social History Alcohol Use: other Smoking Status: Unknown if ever smoked Drug Use: other Medications Current Medications Ondansetron HCl (Zofran Inj) 4 mg BRIDGE ORDER PRN IV NAUSEA AND/OR VOMITING; Start 09/02/18 at 02:30; Stop 09/03/18 at 02:29 Acetaminophen (Tylenol Tab) 650 mg ER BRIDGE PRN PO MILD PAIN(1-3)OR ELEVATED TEMP; Start 09/02/18 at 02:30; Stop 09/03/18 at 02:29 Dextrose/Sodium Chloride 1,000 ml @ 100 mls/hr Q10H IV Last administered on 09/02/18at 05:12; Admin Dose 100 MLS/HR; Start 09/02/18 at 04:25 IV Flush (NS 3 ml) 3 ml PER PROTOCOL IV ; Start 09/02/18 at 04:30 Ondansetron HCl (Zofran Inj) 4 mg Q6H PRN IV NAUSEA AND/OR VOMITING Last administered on 09/02/18at 05:13; Admin Dose 4 MG; Start 09/02/18 at 04:30 Morphine Sulfate (morphine) 3 mg Q4H PRN IV SEVERE PAIN LEVEL 7-10; Start 09/02/18 at 04:30 Coded Allergies: ibuprofen (Verified Allergy, Mild, rash, 09/02/18) Penicillins (Verified Allergy, Unknown, 09/01/18) Past Surgical History Past Surgical Hx: no surgical history Family History Significant Family History: no pertinent family hx Social History Smoking Status: Never smoker Exam/Review of Systems Vital Signs Vitals Vital Signs Date Temp Pulse Resp B/P (MAP) Pulse Ox O2 O2 Flow FiO2 Time Delivery Rate 09/02/18 98.3 94 18 125/79 95 03:13 (94) 09/02/18 Nasal 3.0 02:22 Cannula Intake and Output 09/01/18 09/01/18 09/02/18 1515:00 23:00 07:00 OutputOutput Total 50 ml BalanceBalance -50 ml Exam Constitutional: alert, oriented Head: normocephalic, atraumatic Eyes: EOMI, PERRL Respiratory: clear to auscultation, normal air movement Cardiovascular: other (Slightly tachycardic regular rhythm) Gastrointestinal: other (Seems slightly distended) Extremities: normal pulses RICARDA BLAIR MD Sep 02, 2018 07:02
[2018-09-02 07:53] VITALS: BP 131/66; PULSE 86; RESP 18
[2018-09-02] MEDS ORDERED: BISACODYL 10 MG SUPP PR ONE (09:30)
[2018-09-02] MEDS ORDERED: PROCHLORPERAZINE 10 MG INJ IM ONE (10:00)
--- NOTE | 2018-09-02 12:51 | PN ---
Date/Time of Note Date/Time of Note DATE: 09/02/18 TIME: 12:49 Assessment/Plan VTE Prophylaxis Risk score (from Ns)>0 risk: 2 SCD applied (from Ns): Yes SCD contraindicated: low risk/ambulating Pharmacological prophylaxis: NA/contraindicated Pharm contraindication: low risk/ambulating Lines/Catheters IV Catheter Type (from [facility]): Saline Lock Assessment/Plan Hospital Course Assessment and plan 1. Abdominal pain fecal pattern seen on CT increased bowel care regimen 2. Postop day 4 lap lilo, postop pain/changes noted on CT which is not unexpected, stable continue supportive care 3. Chronic cholecystitis status post lap lilo continue wound care follow-up with surgery 4. Leiomyoma 5. Ovarian cyst benign no need to observe 6. Abn LFTs as expected 7. Anemia stable Subjective: Abdominal pain. Low-grade fever x1 Objective: Vital signs stable Physical exam No pallor adenopathy icterus Regular no murmur gallop Clear bs+ mild diffuse tenderness no rigidity rebound guarding No edema Result Diagram: 09/02/1852709/02/18527 Results 24hrs Laboratory Tests Test 09/01/18 22:40 09/02/18 05:28 White Blood Count 10.9 #H 10.8 Red Blood Count 4.72 # 4.25 Hemoglobin 14.0 # 12.6 Hematocrit 42.2 # 38.2 Mean Corpuscular Volume 89.4 89.9 Mean Corpuscular Hemoglobin 29.7 29.6 Mean Corpuscular Hemoglobin Concent 33.2 33.0 Red Cell Distribution Width 13.5 14.1 Platelet Count 271 242 Mean Platelet Volume 10.1 10.4 Immature Granulocytes % 0.400 0.500 H Neutrophils % 83.8 H 85.7 H Lymphocytes % 9.6 L 8.3 L Monocytes % 3.9 5.0 Eosinophils % 1.8 0.2 Basophils % 0.5 0.3 Nucleated Red Blood Cells % 0.0 0.0 Immature Granulocytes # 0.040 H 0.050 H Neutrophils # 9.2 H 9.3 H Lymphocytes # 1.1 0.9 Monocytes # 0.4 0.5 Eosinophils # 0.2 0.0 Basophils # 0.1 0.0 Nucleated Red Blood Cells # 0.0 0.0 Sodium Level 141 138 Potassium Level 4.0 3.7 Chloride Level 104 107 Carbon Dioxide Level 21 21 Anion Gap 16 H 10 # Blood Urea Nitrogen 11 10 Creatinine 0.55 0.41 L Est Glomerular Filtrat Rate mL/min > 60 > 60 Glucose Level 168 151 Calcium Level 9.3 8.8 Total Bilirubin 0.3 0.3 Direct Bilirubin 0.00 0.00 Indirect Bilirubin 0.3 0.3 Aspartate Amino Transf (AST/SGOT) 240 H 158 H Alanine Aminotransferase (ALT/SGPT) 248 H 221 H Alkaline Phosphatase 104 109 Total Protein 8.1 7.5 Albumin 4.5 4.2 Globulin 3.60 H 3.30 H Albumin/Globulin Ratio 1.25 1.27 Lipase 35 Exam/Review of Systems Vital Signs Vitals Vital Signs Date Temp Pulse Resp B/P (MAP) Pulse Ox O2 O2 Flow FiO2 Time Delivery Rate 09/02/18 98.4 86 18 131/66 97 Room Air 07:53 (87) 09/02/18 3.0 02:22 Intake and Output 09/01/18 09/01/18 09/02/18 1515:00 23:00 07:00 OutputOutput Total 50 ml BalanceBalance -50 ml Medications Medications Current Medications Dextrose/Sodium Chloride 1,000 ml @ 100 mls/hr Q10H IV Last administered on 09/02/18at 05:12; Admin Dose 100 MLS/HR; Start 09/02/18 at 04:25 IV Flush (NS 3 ml) 3 ml PER PROTOCOL IV ; Start 09/02/18 at 04:30 Ondansetron HCl (Zofran Inj) 4 mg Q6H PRN IV NAUSEA AND/OR VOMITING Last administered on 09/02/18at 05:13; Admin Dose 4 MG; Start 09/02/18 at 04:30 Morphine Sulfate (morphine) 3 mg Q4H PRN IV SEVERE PAIN LEVEL 7-10 Last administered on 09/02/18at 08:03; Admin Dose 3 MG; Start 09/02/18 at 04:30 JULIANNE MAHARAJ MD Sep 02, 2018 12:51
[2018-09-02] MEDS ORDERED: BISACODYL (EC) 5 MG TAB PO PRN (13:00)
[2018-09-02] MEDS ORDERED: BISACODYL 10 MG SUPP PR PRN (13:00)
[2018-09-02 13:45] VITALS: BP 121/73; PULSE 79; RESP 18
[2018-09-02] MEDS: FAMOTIDINE 20 MG INJ IV SCH (15:16)
[2018-09-02] MEDS: KETOROLAC 30 MG INJ IV SCH ×2 (15:16→19:43)
[2018-09-02] MEDS: MAGNESIUM HYDROXIDE 30ML CUP PO SCH ×2 (15:16→21:33)
--- NOTE | 2018-09-02 15:19 | CONS ---
Date/Time of Note Date/Time of Note DATE: 09/02/18 TIME: 15:19 Assessment/Plan Assessment/Plan Assessment/Plan 1. Abdominal pain with CT findings of scattered areas of pneumoperitoneum believed to be related to recent surgery (laparoscopic cholecystectomy 08/29/18) with multiple foci of gas and subcutaneous fat and right rectus muscle & ileus pattern of distal small bowel with fecal debris in distal small bowel and gas throughout colonic lumen; + bowel function with large amounts of stool -Pain management preferably with nonnarcotics -Start clear liquid trial -Encourage ambulation -Optimize bowel regimen 2. Bloating -Simethicone 3. Mild leukocytosis: Resolved 4. Transaminitis: Likely 2/2 recent laparoscopic cholecystectomy -Trend -Further workup if persistent 5. Overweight BMI: 29 -diet and exercise optimization -encourage weight loss Thank you. Patient seen and examined in collaboration with Dr. Martín Slaughter. Result Diagram: 09/02/18 0528 09/02/1828 Results 24hrs Laboratory Tests Test 09/01/18 22:40 09/02/18 05:28 White Blood Count 10.9 #H 10.8 Red Blood Count 4.72 # 4.25 Hemoglobin 14.0 # 12.6 Hematocrit 42.2 # 38.2 Mean Corpuscular Volume 89.4 89.9 Mean Corpuscular Hemoglobin 29.7 29.6 Mean Corpuscular Hemoglobin Concent 33.2 33.0 Red Cell Distribution Width 13.5 14.1 Platelet Count 271 242 Mean Platelet Volume 10.1 10.4 Immature Granulocytes % 0.400 0.500 H Neutrophils % 83.8 H 85.7 H Lymphocytes % 9.6 L 8.3 L Monocytes % 3.9 5.0 Eosinophils % 1.8 0.2 Basophils % 0.5 0.3 Nucleated Red Blood Cells % 0.0 0.0 Immature Granulocytes # 0.040 H 0.050 H Neutrophils # 9.2 H 9.3 H Lymphocytes # 1.1 0.9 Monocytes # 0.4 0.5 Eosinophils # 0.2 0.0 Basophils # 0.1 0.0 Nucleated Red Blood Cells # 0.0 0.0 Sodium Level 141 138 Potassium Level 4.0 3.7 Chloride Level 104 107 Carbon Dioxide Level 21 21 Anion Gap 16 H 10 # Blood Urea Nitrogen 11 10 Creatinine 0.55 0.41 L Est Glomerular Filtrat Rate mL/min > 60 > 60 Glucose Level 168 151 Calcium Level 9.3 8.8 Total Bilirubin 0.3 0.3 Direct Bilirubin 0.00 0.00 Indirect Bilirubin 0.3 0.3 Aspartate Amino Transf (AST/SGOT) 240 H 158 H Alanine Aminotransferase (ALT/SGPT) 248 H 221 H Alkaline Phosphatase 104 109 Total Protein 8.1 7.5 Albumin 4.5 4.2 Globulin 3.60 H 3.30 H Albumin/Globulin Ratio 1.25 1.27 Lipase 35 Consultation Date/Type/Reason Admit Date/Time Sep 02, 2018 at 02:04 Date of Consultation: Sep 02, 2018 Type of Consult Surgical Reason for Consultation Status post laparoscopic cholecystectomy, abdominal pain, ileus Requesting Provider: FLORENTINO DENNISON MD Hx of Present Illness Phoebe valdez is a 43-year-old woman who was recently discharged from [facility] who recently underwent a laparoscopic cholecystectomy on 08/29/18 secondary to acute cholecystitis. She now returns with complaints of abdominal pain. Abdominal pain is described as strong and persistent, predominantly on the lower pelvic area. Associated symptoms include nausea with vomiting, nonbloody emesis. She denies fevers, chills, congested cough, chest pain, palpitations, diarrhea, change in bowel or bladder habits, skin or scleral changes. CT imaging of the abdomen showed scattered areas of pneumoperitoneum believed to be related to recent surgery with multiple foci of gas and subcutaneous fat and right rectus muscle. CT also shows ileus pattern of distal small bowel with fecal debris in distal small bowel and gas throughout colonic lumen. Laboratory findings significant for mildly elevated WBC as well as elevated transaminases. General surgery was asked to evaluate. 12 point review of systems was performed and is negative except as stated in HPI Past Medical History As above Medications Current Medications Dextrose/Sodium Chloride 1,000 ml @ 50 mls/hr Q20H IV Last administered on 09/02/18at 05:12; Admin Dose 100 MLS/HR; Start 09/02/18 at 04:25 IV Flush (NS 3 ml) 3 ml PER PROTOCOL IV ; Start 09/02/18 at 04:30 Morphine Sulfate (morphine) 3 mg Q4H PRN IV SEVERE PAIN LEVEL 7-10 Last administered on 09/02/18at 08:03; Admin Dose 3 MG; Start 09/02/18 at 04:30 Ondansetron HCl (Zofran Inj) 4 mg Q4 PRN IV NAUSEA AND/OR VOMITING; Start 09/02/18 at 13:00 Senna/Docusate Sodium (Senokot-S) 2 tab HS PO ; Start 09/02/18 at 21:00 Magnesium Hydroxide (Milk Of Mag) 30 ml BID PO Last administered on 09/02/18at 15:16; Admin Dose 30 ML; Start 09/02/18 at 13:00; Stop 09/03/18 at 23:00 Bisacodyl (Dulcolax Supp) 10 mg DAILY PRN [place] CONSTIPATION; Start 09/02/18 at 13:00 Bisacodyl (Dulcolax) 10 mg DAILY PRN PO CONSTIPATION; Start 09/02/18 at 13:00 Simethicone (Mylicon) 80 mg QID PRN PO DISTENSION/GAS/BLOATING; Start 09/02/18 at 13:00 Famotidine (Pepcid Iv) 20 mg DAILY IV Last administered on 09/02/18at 15:16; Admin Dose 20 MG; Start 09/02/18 at 13:00 Enoxaparin Sodium (Lovenox) 40 mg DAILY SC ; Start 09/03/18 at 09:00 Ketorolac Tromethamine (Toradol) 30 mg Q6H IV Last administered on 09/02/18at 15:16; Admin Dose 30 MG; Start 09/02/18 at 13:30; Stop 09/03/18 at 13:00 Allergies: Coded Allergies: ibuprofen (Verified Allergy, Mild, rash, 09/02/18) Penicillins (Verified Allergy, Unknown, 09/01/18) Past Surgical History As above Family History Significant Family History: no pertinent family hx Social History Smoking Status: Never smoker Exam/Review of Systems Vital Signs Vitals Vital Signs Date Temp Pulse Resp B/P (MAP) Pulse Ox O2 O2 Flow FiO2 Time Delivery Rate 09/02/18 97.9 79 18 121/73 94 Room Air 13:45 (89) 09/02/18 3.0 02:22 Intake and Output 09/01/18 09/01/18 09/02/18 1515:00 23:00 07:00 OutputOutput Total 50 ml BalanceBalance -50 ml Exam Constitutional: alert, oriented, well developed Psych: nl mood/affect; No anxiety Head: normocephalic, atraumatic Eyes: nl conjunctiva, EOMI, nl lids, nl sclera ENMT: nl external ears & nose, nl lips & teeth Neck: supple, non-tender; No jvd Respiratory: normal air movement; No congested cough, No labored breathing Cardiovascular: regular rate and rhythm, nl pulses; No edema Gastrointestinal: soft, bowel sounds, distended (Moderate), tender (Minimal diffuse), other (Incision sites with kumar (no bleeding/drainage)) Genitourinary - Female: nl external genitalia Musculoskeletal: nl extremities to inspection; No joint tenderness Extremities: normal pulses; No cyanosis, No edema Neurological: nl mental status, nl speech, nl strength Skin: No rash or lesions Medications Medications Current Medications Dextrose/Sodium Chloride 1,000 ml @ 50 mls/hr Q20H IV Last administered on 09/02/18at 05:12; Admin Dose 100 MLS/HR; Start 09/02/18 at 04:25 IV Flush (NS 3 ml) 3 ml PER PROTOCOL IV ; Start 09/02/18 at 04:30 Morphine Sulfate (morphine) 3 mg Q4H PRN IV SEVERE PAIN LEVEL 7-10 Last administered on 09/02/18at 08:03; Admin Dose 3 MG; Start 09/02/18 at 04:30 Ondansetron HCl (Zofran Inj) 4 mg Q4 PRN IV NAUSEA AND/OR VOMITING; Start 09/02/18 at 13:00 Senna/Docusate Sodium (Senokot-S) 2 tab HS PO ; Start 09/02/18 at 21:00 Magnesium Hydroxide (Milk Of Mag) 30 ml BID PO Last administered on 09/02/18at 15:16; Admin Dose 30 ML; Start 09/02/18 at 13:00; Stop 09/03/18 at 23:00 Bisacodyl (Dulcolax Supp) 10 mg DAILY PRN MT CONSTIPATION; Start 09/02/18 at 13:00 Bisacodyl (Dulcolax) 10 mg DAILY PRN PO CONSTIPATION; Start 09/02/18 at 13:00 Simethicone (Mylicon) 80 mg QID PRN PO DISTENSION/GAS/BLOATING; Start 09/02/18 at 13:00 Famotidine (Pepcid Iv) 20 mg DAILY IV Last administered on 09/02/18at 15:16; Admin Dose 20 MG; Start 09/02/18 at 13:00 Enoxaparin Sodium (Lovenox) 40 mg DAILY SC ; Start 09/03/18 at 09:00 Ketorolac Tromethamine (Toradol) 30 mg Q6H IV Last administered on 09/02/18at 15:16; Admin Dose 30 MG; Start 09/02/18 at 13:30; Stop 09/03/18 at 13:00 ZACHARY BLANK NP Sep 02, 2018 15:19
[2018-09-02 20:00] VITALS: BP 134/73; PULSE 89; RESP 18
[2018-09-02] MEDS: SENNA/DOCUSATE NA (8.6MG/50MG) TAB PO SCH (21:33)
[2018-09-03] MEDS: KETOROLAC 30 MG INJ IV SCH ×2 (01:30→06:54)
[2018-09-03] MEDS: ONDANSETRON 4 MG INJ IV PRN ×3 (01:53→11:04)
[2018-09-03 02:00] VITALS: BP 131/66; PULSE 73
[2018-09-03 07:45] VITALS: BP 128/59; PULSE 76; RESP 16
[2018-09-03] MEDS: FAMOTIDINE 20 MG INJ IV SCH (09:15)
[2018-09-03] MEDS: MAGNESIUM HYDROXIDE 30ML CUP PO SCH ×2 (09:15→21:07)
--- NOTE | 2018-09-03 09:23 | QN ---
Documentation Comment Postoperative day #5 Afebrile throughout Leukocytosis resolved Abdominal examination is benign. Laparoscopic sites are clean Still with postprandial nausea No new surgical recommendations. Can discharge when medically cleared FLORENTINO DENNISON MD Sep 03, 2018 09:23
[2018-09-03] MEDS: ENOXAPARIN 40 MG/0.4 ML SYG SC SCH (09:24)
[2018-09-03 14:24] VITALS: BP 120/60; PULSE 68; RESP 16
[2018-09-03] MEDS: DEXTROSE 5%-0.45% NACL 1,000 ML IV SCH (14:28)
[2018-09-03] MEDS ORDERED: METOCLOPRAMIDE 10 MG INJ IV PRN (17:00)
--- NOTE | 2018-09-03 17:43 | PN ---
Date/Time of Note Date/Time of Note DATE: 09/03/18 TIME: 17:41 Assessment/Plan VTE Prophylaxis Risk score (from Ns)>0 risk: 3 SCD applied (from Ns): Yes Pharmacological prophylaxis: LMWH Lines/Catheters IV [facility] Peripheral IV Assessment/Plan Hospital Course SUBJECTIVE: Denies any abdominal pain. Complains of nausea. OBJECTIVE: Physical Exam General: Adequately build 43 year-old female lying in bed in no apparent distress. HEENT: Normocephalic, atraumatic. Eyes: Anicteric sclerae, conjunctivae clear. ENT: Nasal septum midline, oral mucosa moist. Neck supple, no JVD noticed. Respiratory: Bilaterally diminished breath sounds. No use of accessory muscles of respiration. No adventitious breath sounds. Cardiovascular: S1, S2 heard. Regular rate and rhythm. Abdomen: Soft and nondistended. Bowel sounds positive in all 4 quadrants. Nela over laparoscopic incision sites. Genitourinary: Deferred. Extremities: No cyanosis, no clubbing, no edema. Peripheral pulses palpable. Neurologic: Cranial nerves II through XII grossly intact. The patient is awake, alert, and oriented. Skin: Normal skin turgor. No skin rashes. Labs & Vitals per chart ASSESSMENT & PLAN 43-year-old female who had a laparoscopic cholecystectomy on 08/29/2018 and was discharged home on 08/30/2018. The patient returned back to [facility] on 09/02/2018 because of abdominal pain and unable to tolerate oral intake. Abdominal CT scan was showing ileus pattern of the distal small bowel and colon with some fecal debris. The CT also revealed pneumoperitoneum with multiple foci of gas in the subcutaneous fat of the right rectus muscle. The patient was admitted to inpatient setting for further treatment and evaluation. 1. Postoperative pain and poor oral intake. -Status post evaluation by general surgery. -Continue to advance her diet as tolerated. -Continue antiemetics and prokinetics. 2. Transaminitis -Improving. 3. Uterine leiomyoma. -Incidental finding. 4. Fluids, electrolytes, and nutrition. -On clear liquid diet. -Advance diet. 5. DVT prophylaxis -Subcutaneous Lovenox. 6. Plan. -Encourage frequent ambulation. -Encourage incentive spirometry. -Advance diet as tolerated. -Possible discharge in 24 hours. The patient was seen in collaboration with Dr. Murphy. Result Diagram: 1/7/19 0441 09/03/18 0441 Results 24hrs Laboratory Tests Test 09/02/18 22:00 09/03/18 04:37 09/03/18 04:41 Urine Color HARMAN Urine Clarity TURBID A Urine pH 5.0 Urine Specific Jackson 1.038 H Urine Ketones NEGATIVE Urine Nitrite NEGATIVE Urine Bilirubin NEGATIVE Urine Urobilinogen 1+ H Urine Leukocyte Esterase NEGATIVE Urine Microscopic RBC 12 H Urine Microscopic WBC 3 Urine Squamous Epithelial Cells FEW Urine Calcium Oxalate Crystals MODERATE Urine Bacteria FEW A Urine Mucus MODERATE Urine Yeast (Budding) FEW A Urine Hemoglobin NEGATIVE Urine Glucose NEGATIVE Urine Total Protein 1+ H Serum HCG, Qualitative NEGATIVE White Blood Count 8.7 Red Blood Count 4.53 Hemoglobin 13.6 Hematocrit 40.3 Mean Corpuscular Volume 89.0 Mean Corpuscular Hemoglobin 30.0 Mean Corpuscular Hemoglobin Concent 33.7 Red Cell Distribution Width 14.2 Platelet Count 260 Mean Platelet Volume 10.4 Immature Granulocytes % 0.300 Neutrophils % 75.3 Lymphocytes % 13.6 L Monocytes % 7.7 Eosinophils % 2.4 Basophils % 0.7 Nucleated Red Blood Cells % 0.0 Immature Granulocytes # 0.030 Neutrophils # 6.5 Lymphocytes # 1.2 Monocytes # 0.7 Eosinophils # 0.2 Basophils # 0.1 Nucleated Red Blood Cells # 0.0 Prothrombin Time 12.9 Prothrombin Time Ratio 1.0 INR International Normalized Ratio 0.96 Sodium Level 141 Potassium Level 3.5 Chloride Level 101 Carbon Dioxide Level 28 Anion Gap 12 Blood Urea Nitrogen 17 Creatinine 0.62 Est Glomerular Filtrat Rate mL/min > 60 Glucose Level 132 Calcium Level 8.7 Phosphorus Level 4.6 Magnesium Level 3.1 H Total Bilirubin 0.3 Direct Bilirubin 0.00 Indirect Bilirubin 0.3 Aspartate Amino Transf (AST/SGOT) 73 H Alanine Aminotransferase (ALT/SGPT) 155 H Alkaline Phosphatase 93 Total Protein 6.4 # Albumin 3.6 Globulin 2.80 Albumin/Globulin Ratio 1.28 Lipase 43 Thyroid Stimulating Hormone (TSH) 2.450 Hepatitis B Surface Antigen NEGATIVE Hepatitis B Core Total Antibody NEGATIVE Hepatitis C Antibody NEGATIVE Exam/Review of Systems Vital Signs Vitals Vital Signs Date Temp Pulse Resp B/P (MAP) Pulse Ox O2 O2 Flow FiO2 Time Delivery Rate 09/03/18 97.7 68 16 120/60 93 Room Air 14:24 (80) 09/02/18 3.0 02:22 Intake and Output 09/02/18 09/02/18 09/03/18 1515:00 23:00 07:00 IntakeIntake Total 1360 ml 650 ml BalanceBalance 1360 ml 650 ml Medications Medications Current Medications Dextrose/Sodium Chloride 1,000 ml @ 50 mls/hr Q20H IV Last administered on 09/03/18 14:28; Admin Dose 50 MLS/HR; Start 09/02/18 at 04:25 IV Flush (NS 3 ml) 3 ml PER PROTOCOL IV ; Start 09/02/18 at 04:30 Morphine Sulfate (morphine) 3 mg Q4H PRN IV SEVERE PAIN LEVEL 7-10 Last administered on 09/02/18 08:03; Admin Dose 3 MG; Start 09/02/18 at 04:30 Ondansetron HCl (Zofran Inj) 4 mg Q4 PRN IV NAUSEA AND/OR VOMITING Last administered on 09/03/18at 11:04; Admin Dose 4 MG; Start 09/02/18 at 13:00 Senna/Docusate Sodium (Senokot-S) 2 tab HS PO Last administered on 09/02/18 21:33; Admin Dose 2 TAB; Start 09/02/18 at 21:00 Magnesium Hydroxide (Milk Of Mag) 30 ml BID PO Last administered on 09/03/18at 09:15; Admin Dose 30 ML; Start 09/02/18 at 13:00; Stop 09/03/18 at 23:00 Bisacodyl (Dulcolax Supp) 10 mg DAILY PRN [place] CONSTIPATION; Start 09/02/18 at 13:00 Bisacodyl (Dulcolax) 10 mg DAILY PRN PO CONSTIPATION; Start 09/02/18 at 13:00 Simethicone (Mylicon) 80 mg QID PRN PO DISTENSION/GAS/BLOATING; Start 09/02/18 at 13:00 Famotidine (Pepcid Iv) 20 mg DAILY IV Last administered on 09/03/18 09:15; Admin Dose 20 MG; Start 09/02/18 at 13:00 Enoxaparin Sodium (Lovenox) 40 mg DAILY SC Last administered on 09/03/18at 09:24; Admin Dose 40 MG; Start 09/03/18 at 09:00 Metoclopramide HCl (Reglan) 5 mg Q6H PRN IV NAUSEA Last administered on 09/03/18at 16:50; Admin Dose 5 MG; Start 09/03/18 at 17:00 ANDRES SULLIVAN NP Sep 03, 2018 17:43
[2018-09-03 20:00] VITALS: BP 112/59; PULSE 75; RESP 19
[2018-09-03] MEDS: SENNA/DOCUSATE NA (8.6MG/50MG) TAB PO SCH (21:07)
[2018-09-03] MEDS: POLYETHYLENE GLYCOL 17 GM PACKET PO SCH (21:08)
[2018-09-04 02:00] VITALS: BP 129/64; PULSE 60; RESP 18
[2018-09-04] MEDS: DEXTROSE 5%-0.45% NACL 1,000 ML IV SCH (06:38)
[2018-09-04] MEDS ORDERED: POTASSIUM CHLORIDE (SR) 20 MEQ TAB PO STA (07:07)
[2018-09-04 07:44] VITALS: BP 129/58; PULSE 78; RESP 18
[2018-09-04] MEDS: POLYETHYLENE GLYCOL 17 GM PACKET PO SCH (08:22)
[2018-09-04] MEDS: FAMOTIDINE 20 MG INJ IV SCH (09:04)
[2018-09-04] MEDS: ENOXAPARIN 40 MG/0.4 ML SYG SC SCH (09:05)
[2018-09-04] MEDS ORDERED: ONDA4TAB8 PO (11:08)
--- NOTE | 2018-09-04 11:12 | PDOCDIS ---
Discharge Instructions CONDITION [id number] Patient Condition: [id number] Stable HOME CARE INSTRUCTIONS: [id number] Diet Instructions: [id number] Regular FOLLOW UP/APPOINTMENTS Follow-up Plan Tera Valle MD Specialty: Internal Medicine Office Address: [address] [place] [address] [place], [place] [id number] Office OTHER ORDERS: Other Orders: 1. Take a regular, preferably low-cholesterol diet. 2. Take pain medications as needed. 3. Resume activities as tolerated. Follow postoperative instructions that were provided to you on the day of discharge after surgery. 4. Please go to the nearest emergency room if you have significant abdominal pain, persistent nausea/vomiting, persistent fevers, or any other unusual signs/symptoms. 5. Follow-up with your primary care physician in 2 weeks. If you do not have a primary care physician, please call Dr. Tera Valle's office. ANDRES SULLIVAN NP Sep 04, 2018 11:12
[2018-09-04] MEDS ORDERED: POTASSIUM CHLORIDE (SR) 20 MEQ TAB PO ONE (13:00)
--- NOTE | 2018-09-04 13:54 | DS ---
Date/Time of Note Date/Time of Note DATE: 09/04/18 TIME: 13:54 Discharge Summary Admission/Discharge Info Admit Date/Time Sep 03, 2018 at 18:06 Discharge Date/Time Sep 04, 2018 at 13:10 Discharge Diagnosis 1. Postoperative pain and poor oral intake. 2. Transaminitis 3. Uterine leiomyoma (incidental finding). Patient Condition: Stable Consults 1. Philip Segovia MD, General Surgery. Procedures CT Abdomen & Pelvis IMPRESSION: 1. The scattered areas of pneumoperitoneum are believed to be related to recent surgery, presumably cholecystectomy, with multiple foci of gas in the sub cutaneous fat and right rectus muscle. Perforation of a hollow viscus is believed to be less likely. Results are discussed by telephone with Dr. Acosta at 12:28 a.m. 2. Ileus pattern of the distal small bowel and colon with some fecal debris seen in the distal small bowel and copious gas throughout the colonic lumen but no evidence of complete bowel obstruction or intraperitoneal abscess. 3. Bilateral posterior lower lobe subsegmental atelectasis. 4. Heterogeneous attenuation of the myometrium possibly reflecting small leiomyomata with the endometrium thickness believed to be within normal limits for the patient's age. 5. Incidental left ovarian follicle that does not require imaging follow-up. Hx of Present Illness This is a 43-year-old female who had a laparoscopic cholecystectomy on 08/29/2018 and was discharged home on 08/30/2018. The patient returned back to [facility] on 09/02/2018 because of abdominal pain and unable to tolerate oral intake. Abdominal CT scan was showing ileus pattern of the distal small bowel and colon with some fecal debris. The CT also revealed pneumoperitoneum with multiple foci of gas in the subcutaneous fat of the right rectus muscle. The patient was admitted to inpatient setting for further treatment and evaluation. Hospital Course The patient's surgeon was reconsulted. The patient was given adequate pain control. The patient was maintained on antiemetics. The patient was evaluated by general surgery and general surgeon recommended to advance the patient's diet as tolerated. The patient was initially started on a clear liquid diet and the patient's diet was advanced as tolerated to a regular consistency diet. The patient was later started on prokinetics because of persistent nausea and vomiting. The patient's symptomatology improved with the prokinetic therapy. The patient was maintained on stool softeners. The patient was noticed to have transaminitis that was improving, not unusual after cholecystectomy. The patient's diet was advanced gradually as the patient improved gradually and the patient was able to tolerate a regular consistency diet without any significant gastrointestinal symptoms. Therefore, the patient was discharged home. The patient's abdominal kumar were removed as per the instructions of the surgeon. Discharge Instructions 1. Take a regular, preferably low-cholesterol diet. 2. Take pain medications as needed. 3. Resume activities as tolerated. Follow postoperative instructions that were provided to you on the day of discharge after surgery. 4. Please go to the nearest emergency room if you have significant abdominal pain, persistent nausea/vomiting, persistent fevers, or any other unusual signs/symptoms. 5. Follow-up with your primary care physician in 2 weeks. If you do not have a primary care physician, please call Dr. Tera Valle's office. The patient verbalized understanding of her discharge instructions. At this time I would like to thank Dr. Segovia for seeing the patient in providing clinical recommendations. The patient was seen in collaboration with Dr. Murphy. Home Meds Active Scripts Ondansetron Hcl* (Zofran*) 4 Mg Tablet, 4 MG PO Q6H PRN for NAUSEA AND OR VOMITING, #10 TAB Prov:ANDRES SULLIVAN NP 09/04/18 Discontinued Scripts Sennosides* (Senna Lax*) 8.6 Mg Tablet, 1 TAB PO DAILY, #30 TAB Prov:DARRIN ACOSTA MD 09/02/18 Docusate Sodium* (Colace*) 100 Mg Capsule, 100 MG PO TID, #30 CAP Prov:DARRIN ACOSTA MD 09/02/18 Ondansetron (Ondansetron Odt) 4 Mg Tab.rapdis, 4 MG PO Q6H PRN for NAUSEA AND/OR VOMITING, #10 TAB Prov:DARRIN ACOSTA MD 09/02/18 Hydrocodone Bit-Acetaminophen (Hydrocodone Bit-APAP) 5-325MG Tablet, 1 TAB PO Q4H PRN for MODERATE PAIN LEVEL 4-6, #20 TAB Prov:KACI JAY 08/30/18 Ondansetron (Ondansetron Odt) 4 Mg Tab.rapdis, 4 MG PO Q6H PRN for NAUSEA AND/OR VOMITING, #10 TAB Prov:EDGAR,BRIDGETT 03/23/18 Nitrofurantoin Monohyd Macrocr* (Macrobid*) 100 Mg Capsr, 100 MG PO BID for 7 Days, #14 CAP Prov:EDGARSHILOHBRIDGETT 03/23/18 Follow-up Plan Tera Valle MD Specialty: Internal Medicine Office Address: [address] [place] [address] Office Primary Care Provider Not On Staff Doctor Pending Labs Laboratory Tests Test 09/04/18 05:54 White Blood Count 7.7 10^3/ul (4.8-10.8) Red Blood Count 4.40 10^6/ul (4.20-5.40) Hemoglobin 13.1 g/dl (12.0-16.0) Hematocrit 39.6 % (37.0-47.0) Mean Corpuscular Volume 90.0 fl (82.0-101.0) Mean Corpuscular Hemoglobin 29.8 pg (29.0-33.0) Mean Corpuscular Hemoglobin Concent 33.1 g/dl (32.0-37.0) Red Cell Distribution Width 14.0 % (11.5-14.5) Platelet Count 275 10^3/UL (140-415) Mean Platelet Volume 10.3 fl (7.4-10.4) Immature Granulocytes % 0.400 % (0.001-0.429) Neutrophils % 69.3 % (39.0-77.0) Lymphocytes % 17.7 % (15.0-51.0) Monocytes % 7.8 % (0.0-11.0) Eosinophils % 4.0 % (0.0-7.0) Basophils % 0.8 % (0.0-2.0) Nucleated Red Blood Cells % 0.0 /100WBC (0.0-0.0) Immature Granulocytes # 0.030 10^3/ul (0.0-0.031) Neutrophils # 5.3 10^3/ul (1.6-7.5) Lymphocytes # 1.4 10^3/ul (0.8-2.9) Monocytes # 0.6 10^3/ul (0.3-0.9) Eosinophils # 0.3 10^3/ul (0.0-0.5) Basophils # 0.1 10^3/ul (0.0-0.1) Nucleated Red Blood Cells # 0.0 10^3/ul (0.0-0.0) Sodium Level 142 mmol/L (135-144) Potassium Level 2.9 mmol/L (3.5-5.1) Chloride Level 104 mmol/L (97-110) Carbon Dioxide Level 25 mmol/L (21-31) Anion Gap 13 (5-13) Blood Urea Nitrogen 16 mg/dl (7-20) Creatinine 0.58 mg/dl (0.44-1.00) Est Glomerular Filtrat Rate mL/min > 60 mL/min (>60) Glucose Level 115 mg/dl (70-220) Calcium Level 8.7 mg/dl (8.4-10.2) Phosphorus Level 4.5 mg/dl (2.5-4.9) Magnesium Level 2.3 mg/dl (1.7-2.5) Total Bilirubin 0.3 mg/dl (0.2-1.3) Direct Bilirubin 0.00 mg/dl (0.00-0.20) Indirect Bilirubin 0.3 mg/dl (0-1.1) Aspartate Amino Transf (AST/SGOT) 39 IU/L (15-46) Alanine Aminotransferase (ALT/SGPT) 104 IU/L (13-69) Alkaline Phosphatase 84 IU/L (42-121) Total Protein 6.8 g/dl (6.1-8.1) Albumin 3.8 g/dl (3.3-4.9) Globulin 3.00 g/dl (1.3-3.2) Albumin/Globulin Ratio 1.26 ANDRES SULLIVAN NP Sep 04, 2018 13:54
== END 2018-09-04 13:10 | disposition home or self-care (01) | DRG 948 ==
LOC: E/R 20:37 → 2NE 09-02 02:04 → OBSVTOIN 09-03 18:06
PROVIDERS: ADMIT Internal Medicine; ATTEND Internal Medicine
DX: G89.18 Other acute postprocedural pain (principal); D25.9 Leiomyoma of uterus, unspecified; N83.209 Unspecified ovarian cyst, unspecified side; D64.9 Anemia, unspecified
CPT/HCPCS: 36415; 74177; 80053; 81001; 83690; 83735; 84100; 84443; 84703; 85025; 85610; 86704; 86709; 86803; 87081; 87340; G0378; J0780; J1170; J1650; J1885; J2060; J2270; J2405; J2765; J7030; J7042; Q9967